=== PATIENT | male | born 1985 | race Two or more races ===

== ENCOUNTER 2024-08-23 22:09 | Emergency (ER) | payer MEDICARE, SELFPAY ==
[2024-08-23 22:10] VITALS: BMI 41.0
[2024-08-23 22:19] VITALS: BP 127/74; PULSE 99; RESP 18; TEMP 36.8; O2SAT 98
--- NOTE | 2024-08-23 22:32 | XR_ITS ---
Examination: PA chest single view Technique: Upright PA chest single view Exam date and time: August 23, 2024 at 1057 hrs. Comparison 06/17/2024 Indications: Onset chest pain today. Findings: Mild enlargement cardiac contour Minor subsegmental atelectasis right lower lung zone No pneumonia or pulmonary edema Impression: No interval pneumonia or pulmonary edema
--- NOTE | 2024-08-23 22:34 | EDRME_ITS ---
Rapid Medical Screening Exam [facility] Arrival date/time: 08/23/24 22:0 39M with history of DM, HTN and ESRD presents to ED with 1 day of lower chest/epigastric pain and some possibly red N/V after he ate an apple. Patient states it feels like GERD, but his made him come in. Chief Complaint: Nausea/Vomiting/Diarrhea Vital signs: Vital Signs Temperature 98.3 F 08/23/24 22:19 Pulse Rate 99 08/23/24 22:19 Respiratory Rate 18 08/23/24 22:19 Blood Pressure 127/74 08/23/24 22:19 Pulse Oximetry (%) 98 08/23/24 22:19 Oxygen Delivery Method Room Air 08/23/24 22:19
[2024-08-23] MEDS: MG HYD/AL HYD/SIME (Maalox Reg) SUSP 30 ML UDC PO (22:42)
[2024-08-23] MEDS: ONDANSETRON ODT 4 MG TABRAP PO (22:42)
[2024-08-23 23:31] LABS: Alanine Aminotransferase 22 U/L (10-49); Albumin, Serum 3.9 gm/dL (3.5-5.0); Albumin/Globulin Ratio 1.7 (1.2-2.2); Alkaline Phosphatase 66 U/L (46-116); Anion Gap 13 (7-16); Aspartate Amino Transferase 22 U/L (0-34); BUN/Creatinine Ratio 6 Ratio (12-20); Bilirubin,Total 0.2 mg/dL (0.3-1.2); Blood Urea Nitrogen 67 mg/dL (9-23); Calcium 7.2 mg/dL (8.3-10.6); Calcium (Corrected) 7.3 mg/dL (8.5-10.1); Carbon Dioxide 23.3 mMol/L (20.0-31.0); Chloride 105 mMol/L (98-107); Globulin 2.3 gm/dL (2.3-3.5); Glucose 104 mg/dL (74-106); Lipase 29 U/L (12-53); Osmolality,Calculated 300 (275-295); Sodium 141 mMol/L (136-145); Total Protein 6.2 gm/dL (5.7-8.2); Troponin I < 0.020 ng/mL (0.0-0.045); eGFR 6 See Note
[2024-08-23 23:36] LABS: Basophils # (Auto) 0.1 Thou/mm3 (0.0-0.2); Basophils % (Auto) 0 % (0-2.5); Eosinophils # (Auto) 0.3 Thou/mm3 (0.0-0.5); Eosinophils % (Auto) 3 % (0-10); Hematocrit 25.9 % (41.0-53.0); Immature Granulocytes % (Auto) 0 % (0-0); Immature Granulocytes Auto 0.05 Thou/mm3 (0.00-0.00); Lymphocytes # (Auto) 2.1 Thou/mm3 (1.0-4.8); Lymphocytes % (Auto) 17 % (10-50); Mean Corpuscular HGB Conc 32.4 g/dl (31.0-37.0); Mean Corpuscular Hemoglobin 31.8 pg (25.0-35.0); Mean Corpuscular Volume 98 fL (80-100); Monocytes % (Auto) 9 % (0-12); Neutrophils # (Auto) 8.5 Thou/mm3 (1.8-7.7); Neutrophils % (Auto) 71 % (37-80); Nucleated Red Blood Cell % 0 /100 WBC (0); Platelet Count 318 Thou/mm3 (140-440); Red Blood Count 2.64 Miln/mm3 (4.50-5.90); White Blood Count 12.1 Thou/mm3 (3.8-10.6)
[2024-08-23 23:39] LABS: Hemoglobin 8.4 g/dL (13.5-16.0)
[2024-08-24] LABS: Creatinine (Component) 10.6 mg/dL (0.6-1.3)
[2024-08-24 00:59] VITALS: BP 182/91; PULSE 103; RESP 18; TEMP 36.9; O2SAT 99
[2024-08-24 01:00] VITALS: BP 163/92; PULSE 102; RESP 16; O2SAT 99
[2024-08-24 01:30] VITALS: BP 163/92; PULSE 100; RESP 18; O2SAT 100
--- NOTE | 2024-08-24 01:30 | PD.EDNV ---
Nausea/Vomit./Diarrhea-RME/HPI General Chief complaint: Nausea/Vomiting/Diarrhea Stated complaint: VOMITING,CHEST DISCOMFORT Arrival date/time: 08/23/24 22:09 Limitations: no limitations RME / HPI RME / HPI Narrative: 08/23/24 22:0 39M with history of DM, HTN and ESRD presents to ED with 1 day of lower chest/epigastric pain and some possibly red N/V after he ate an apple. Patient states it feels like GERD, but his made him come in. ------ Dr. Tripathi's Main ED Evaluation: 39yo male with pmhx ESRD on peritoneal dialysis, HTN, DM presents to the ED for a chief complaint of chest pain x 1 day. Patient states his chest pain has been progressively getting worse throughout the day. He endorses taking Tums without any alleviation of symptoms. He states he ate an apple, reporting he had N/V after and started noticing some reddish streaks, so his insisted he came in for evaluation. Patient is followed by Dr. Barnes. Denies any other associated symptoms. Denies any recent sick contacts. No known allergies. Related Data Home Medications ?Medication ?Instructions ?Recorded ?Confirmed insulin aspart U-100 100 unit/mL See Rx Instructions .Route .COMPLEX 04/02/20 12/10/23 (3 mL) subcutaneous pen (Novolog FlexPen U-100 Insulin aspart) insulin detemir U-100 100 unit/mL 50 unit subcut DAILY 04/02/20 12/10/23 subcutaneous solution (Levemir U-100 Insulin) aspirin 81 mg capsule 81 mg PO DAILY 11/03/23 12/10/23 atorvastatin 20 mg tablet 20 mg PO QPM 11/03/23 12/07/23 calcitriol 0.5 mcg capsule 0.5 mcg PO DAILY 11/03/23 12/07/23 furosemide 20 mg tablet 20 mg PO DAILY 11/03/23 12/10/23 labetalol 200 mg tablet 200 mg PO BID 11/03/23 12/07/23 losartan 100 1 tab PO DAILY 11/03/23 12/07/23 mg-hydrochlorothiazide 25 mg tablet nifedipine 30 mg tablet,extended 30 mg PO QDAY 11/03/23 12/07/23 release 24 hr sodium bicarbonate 325 mg tablet 325 mg PO BID 11/03/23 12/07/23 spironolactone 25 mg tablet 25 mg PO QDAY 11/03/23 12/07/23 Previous Rx's ?Medication ?Instructions ?Recorded calcium acetate(phosphat bind) 667 667 mg PO TIDWM #90 caps 12/14/23 mg capsule Allergies Allergy/AdvReac Type Severity Reaction Status Date / Time No Known Allergies Allergy Verified 08/23/24 22:12 Review of Systems Review of Systems Systems Reviewed: All systems reviewed, normal except as documented Past Medical History Past Medical History NEUROLOGIC: Negative Neurological Disorders, Cerebrovascular Accident, Transient Ischemic Attacks (TIA), Dementia, Alzheimer's Disease, Parkinson's Disease, Brain Tumor, Meningitis, Seizures, Epilepsy, Multiple Sclerosis, Cerebral Palsy, Amyotrophic Lateral Sclerosis (ALS/Ally Gehrig's), Guillain-Drifton Syndrome, Spina Bifida, Paralysis, Sierra's Palsy, Subdural Hematoma, Migraine, Head Trauma, Spinal Cord Injury or Traumatic Brain Injury CARDIAC: Positive Cardiomyopathy, Edema and Hypertension; Negative Cardiac Disorders, Myocardial Infarction, Cardiac Arrhythmia, Atrial Fibrillation, Angina, Heart Murmur, Coronary Artery Disease, Atherosclerotic Heart Disease, Peripheral Vascular Disease, Hypercholesterolemia, Aneurysm, Congestive Heart Failure, Congenital Heart Disease, Valvular Heart Disease, Rheumatic Fever, Pericarditis, Cellulitis, Deep Vein Thrombosis, Hypotension or Varicose Veins RESPIRATORY: Negative Chronic Obstructive Pulmonary Disease (COPD), Asthma, Bronchitis, Emphysema, Pneumonia, Pulmonary Fibrosis, Cystic Fibrosis, Tuberculosis, Pulmonary Embolism, Pulmonary Edema or Sleep Apnea GASTROINTESTINAL: Positive Obesity; Negative Gastrointestinal Disorders, Hepatitis, Cirrhosis, Pancreatitis, Celiac Disease, Gall Bladder Disease, Gastrointestinal Bleed, Esophageal Varices, Alvarado's Esophagus, Colitis, Ulcerative Colitis, Diverticulitis, Diverticulosis, Ulcer, Colorectal Cancer, Irritable Bowel, Crohn's Disease, Obstructive Bowel, Hiatal Hernia, Hemorrhoids or Gastroesophageal Reflux Disease GENITOURINARY: Negative Genitourinary Disorders, Renal Disease, Kidney Stones, Polycystic Kidney Disease, Neurogenic Bladder, Inguinal Hernia, Dialysis, Prostate Cancer or Benign Prostatic Hyperplasia REPRODUCTIVE: Negative Fibroids, Genital Herpes, Gonorrhea, Syphilis or Testicular Cancer MUSCULOSKELETAL: Positive Musculoskeletal Disorders and Fibromyalgia; Negative Muscular Dystrophy, Myasthenia Gravis, Marfan's Syndrome, Bone Cancer, Arthritis, Rheumatoid Arthritis, Osteoporosis, Degenerative Disk Disease, Gout, Scoliosis, Carpal Tunnel Syndrome, Fractures, Degenerative Joint Disease, Osteomyelitis or Poliovirus ENT: Positive Glaucoma; Negative Cataracts, Blind, Retinal Detachment, Macular Degeneration, Ear Infection, Deafness, Head Trauma or Eye Prosthesis ENDOCRINE: Positive Endocrine Disorders and Diabetes Mellitus Type 1; Negative Diabetes Mellitus Type 2, Hypoglycemia, Spencer's Syndrome, Dixon's Disease, Hyperthyroidism, Hypothyroidism, Parathyroid Disease, Pituitary Disease, Systemic Lupus Erythematosus, Syndrome of Inappropriate Antidiuretic Hormone (SIADH), Adrenal Disease or Graves' Disease HEMATOLOGIC: Negative Blood Disorders, Anemia, Leukemia, Hemophilia, Thalassemia, Sickle Cell Disease or Clotting Problems PSYCHO/SOCIAL: Negative Psychiatric Problems, Schizophrenia, Recreational Drug Use, Bipolar Disorder, Depression, Anxiety, Behavior Problems, Self-Mutilation, Attention Deficit Disorder, Attention Deficit Hyperactivity Disorder, Depression or Eating Disorder OTHER HISTORY: Positive Hospitalization, Falls and Chicken Pox; Negative Autoimmune Disease, Down Syndrome, Autism, Developmental Delay, Shingles, Blood Transfusions, Blood Transfusion Reaction, Anesthesia Reactions, Organ Transplant, Chemotherapy, Radiation Therapy, Hyperbaric Therapy, MRSA, VRSA, Vancomycin-Resistant Enterococci, Human Immunodeficiency Virus (HIV), Measles, Rubella ([place] Measles), Pertussis, Clostridium Difficile, Cancer, Colorectal Cancer, Lung Cancer, Prostate Cancer or Testicular Cancer Family History FAMILY HISTORY: Negative Family Psychiatric Problems, Family Respiratory Disorders, Family Cardiac Disorders, Family Gastrointestinal Problems, Family Cancer, Family Surgery or Family Anesthesia Reaction Surgical History SURGICAL: Positive Amputation; Negative Cardiac Surgery, Open Heart Surgery, Coronary Artery Bypass Graft, Valve Replacement, Vascular Surgery, Coronary Stent, Cardiac Catheterization, Pacemaker, Angiogram, Auto Implanted Cardiovert Defib, Endocrine Surgery, Thyroidectomy, Ear Surgery, Tympanostomy Tube, Eye Surgery, Nose Surgery, Oral Surgery, Tonsillectomy, Adenoidectomy, Cochlear Implant, Corneal Transplant, Throat Surgery, Abdominal Surgery, Tracheostomy, Gastric Bypass Surgery, Gastrostomy, Bowel Surgery, Nephrectomy, Transurethral Resection, Joint Replacement, Open Reduction Internal Fixation, Arthroscopy, Neurologic Surgery, Brain Shunt, Vasectomy or Organ Transplant Social History SMOKING STATUS: Never smoker SECOND HAND EXPOSURE: No SUBSTANCE USE: does not use ED Exam General Limitations: Present no limitations General appearance: Present alert and in no apparent distress Head Head exam: Present atraumatic Eye Eye exam: Present normal appearance, PERRL and EOMI ENT ENT exam: Present normal exam, normal oropharynx and mucous membranes moist Neck Neck exam: Present normal inspection, full ROM and trachea midline Chest Chest inspection: Present normal inspection and symmetric chest wall rise Respiratory Respiratory exam: Present normal lung sounds bilaterally Cardiovascular Cardiovascular exam: Present regular rate, normal rhythm and normal heart sounds Abdominal Exam Abdominal exam: Present soft and normal bowel sounds Extremities Exam Extremities exam: Present normal inspection and full ROM Back Exam Back exam: Present normal inspection and full ROM Neurological Exam Neurological exam: Present alert, oriented X3 and CN II-XII intact Psychiatric Psychiatric exam: Present normal affect and normal mood Skin Skin exam: Present warm, dry, intact and normal color Course Course Course Narrative: CXR is ordered for determining the etiology of chest pain. Quality Measures none Orders Category Date Time Status EKG (ED ONLY) *Do not use* NOW Care 08/23/24 22:25 Completed EKG (ED Only) Stat Exams 08/23/24 22:25 Ordered XR chest 1V portable Stat Exams 08/23/24 22:32 Completed CBC Stat Lab 08/23/24 22:53 Completed Comprehensive Metabolic Panel Stat Lab 08/23/24 22:53 Completed Lipase Stat Lab 08/23/24 22:53 Completed Troponin I Stat Lab 08/23/24 22:53 Completed Ondansetron Odt [Zofran Odt] Med 08/23/24 22:32 Discontinued 4 mg PO X1 ONE mg Hyd/Al Hyd/Teresa Susp [Maalox Susp] Med 08/23/24 22:32 Discontinued 30 ml PO X1 ONE Vital Signs Vital signs: Vital Signs Temperature 98.3 F 08/23/24 22:19 Pulse Rate 99 08/23/24 22:19 Respiratory Rate 18 08/23/24 22:19 Blood Pressure 127/74 08/23/24 22:19 Pulse Oximetry (%) 98 08/23/24 22:19 Oxygen Delivery Method Room Air 08/23/24 22:19 Pulse ox is 98% on room air, which is normal according to my interpretation. Nausea/Vomiting/Diarrhea Patient data External records reviewed:: [facility] previous records (Per chart review, patient was admitted here on 06/17/24 for a fever, but ultimately left AMA.) Clinical information provided by:: patient Social determinants that could affect healthcare access:: none Patient has the following chronic illnesses:: ESRD on peritoneal dialysis, DM, HTN How is presenting disease/condition affected by chronic disease/condition?: exacerbated by Evaluation data The following diagnostics were reviewed and interpreted by me:: lab results, radiology exam(s) and EKG tracing(s) Lab and/or radiology exams considered but not ordered:: none Interpretation Summary: CXR shows no cardiomegaly, no CHF, no infiltrates, according to my interpretation. EKG done at 2246 shows normal sinus rhythm, rate of 97, PVCs, QTc: 433, no STEMI, similar to previous EKG done on 06/17/24 Medications / Prescriptions Medications / Prescriptions considered but not ordered:: none Medication administrations:: Medication Administration History Discontinued Medications Al Hydrox/Mg Hydrox/Simethicone (Mg Hyd/Al Hyd/Teresa (Maalox Reg) Susp 30 Ml Udc) 30 ml PO X1 ONE Stop: 08/23/24 22:33 Last Admin: 08/23/24 22:42 Dose: 30 ml Documented By: IGOR Ondansetron HCl (Ondansetron Odt 4 Mg Tabrap) 4 mg PO X1 ONE; Protocol Stop: 08/23/24 22:33 Last Admin: 08/23/24 22:42 Dose: 4 mg Documented By: IGOR see above Consultations Consultation(s) initiated? (list below): No Diagnosis Nausea Differential Diagnosis: food poisoning and other (gastritis, upper GI bleed) Most likely diagnosis given after review of the tests above:: see below Admission Indicated Admission indicated?: not indicated Admission Request Was there a request for admission?: No Disposition Plan Disposition Plan: Discharge Discharge Attestation Discharge Attestation: The patient and all family members were given an opportunity to ask questions and understood the discharge instructions. Discharge instructions specifically effects, indications for sooner follow up or return to the emergency department, and the expected course of current diagnosis. Patient condition: Stable Discharge Plan Plan Patient Disposition: HOME (Self Care) Patient condition on transfer: Stable Prescriptions/Referrals Prescriptions/Med Rec: No Action insulin aspart U-100 [Novolog FlexPen U-100 Insulin] 100 unit/mL (3 mL) Insulin Pen See Rx Instructions .ROUTE .COMPLEX Protocol: Insulin Corrective High-Dose Regimen Condition: Fingerstick Blood Glucose Dose/Route: Insulin Units Condition: 141-180 mg/dl Dose/Route: 6 units/SQ Condition: 181-220 mg/dl Dose/Route: 8 units/SQ Condition: 221-260 mg/dl Dose/Route: 10 units/SQ Condition: 261-300 mg/dl Dose/Route: 12 units/SQ Condition: 301-350 mg/dl Dose/Route: 14 units/SQ Condition: 351-400 mg/dl Dose/Route: 16 units/SQ Condition: greater than 400 mg/dl Dose/Route: 18 units/SQ Rx Instructions: TID every meal sliding scale Levemir U-100 Insulin 100 unit/mL Solution 50 unit SUBCUT DAILY calcium acetate(phosphat bind) 667 mg Capsule 667 mg PO TIDWM Qty: 90 0RF nifedipine 30 mg Tablet Extended Release 24hr 30 mg PO QDAY atorvastatin 20 mg Tablet 20 mg PO QPM labetalol 200 mg Tablet 200 mg PO BID sodium bicarbonate 325 mg Tablet 325 mg PO BID spironolactone 25 mg Tablet 25 mg PO QDAY losartan-hydrochlorothiazide 100-25 mg Tablet 1 tab PO DAILY calcitriol 0.5 mcg Capsule 0.5 mcg PO DAILY furosemide 20 mg Tablet 20 mg PO DAILY aspirin 81 mg Capsule 81 mg PO DAILY Hold Instructions: Resume on 11/04/23. Referrals: Opal Barnes MD [Primary Care Provider] - In 1 week Problem List Clinical Impression: Vomiting Patient/Caregiver Discharge Instructions Diet Instructions: Do not eat anything red tomorrow. Stay hydrated is much as you can based on your fluid restriction. Education Materials: ED Diet for Vomiting or ... Additional Instructions: Return to the emergency department for any worsening symptoms, or any other concerns. Follow-up with your kidney doctor as scheduled. Print Language: Lebanese Stand Alone Forms: Gris Award Info., Patient Portal Info Letter
== END 2024-08-24 01:44 | disposition home or self-care (01) ==
PROVIDERS: Physician Assistant; Emergency Provider Emergency Medicine; PCP Internal Medicine
DX: R11.2 Nausea with vomiting, unspecified (principal); R07.9 Chest pain, unspecified; I49.3 Ventricular premature depolarization
CPT/HCPCS: 36415; 71045; 80053; 83690; 84484; 85025; 93005; 99283; Q0162; A9270

== ENCOUNTER → 2024-08-28 | Outpatient (CLI) | payer MEDICARE, SELFPAY | END | disposition home or self-care (01) | LOC: SWHD 10:43 | PROVIDERS: PCP Internal Medicine; Referring Provider Internal Medicine; Visit Provider Student in an Organized Health Care Education/Training Program | DX: E11.621 Type 2 diabetes mellitus with foot ulcer (principal); L97.512 Non-pressure chronic ulcer of other part of right foot with fat layer exposed; Z79.4 Long term (current) use of insulin; Z79.84 Long term (current) use of oral hypoglycemic drugs | CPT/HCPCS: 11042; A9270 ==

== ENCOUNTER 2024-09-05 09:57 | Outpatient (RCR) | payer MEDICARE, SELFPAY | END 2024-09-08 23:59 | disposition home or self-care (01) | LOC: SWHD 09:57 | PROVIDERS: PCP Internal Medicine; Referring Provider Internal Medicine; Visit Provider Student in an Organized Health Care Education/Training Program | DX: E11.621 Type 2 diabetes mellitus with foot ulcer (principal); L97.512 Non-pressure chronic ulcer of other part of right foot with fat layer exposed; Z79.4 Long term (current) use of insulin; Z79.84 Long term (current) use of oral hypoglycemic drugs | CPT/HCPCS: 11042; 82962; A9270; G0277 ==

== ENCOUNTER → 2024-09-26 | Outpatient (CLI) | payer MEDICARE, SELFPAY | END | disposition home or self-care (01) | LOC: SWHD 11:49 | PROVIDERS: PCP Internal Medicine; Referring Provider Internal Medicine; Visit Provider Student in an Organized Health Care Education/Training Program | DX: L97.512 Non-pressure chronic ulcer of other part of right foot with fat layer exposed (principal); Z79.4 Long term (current) use of insulin; Z79.84 Long term (current) use of oral hypoglycemic drugs | CPT/HCPCS: 82962; A9270; G0277 ==

== ENCOUNTER 2024-10-09 09:57 | Outpatient (RCR) | payer MEDICARE, SELFPAY | END 2024-10-09 23:59 | disposition home or self-care (01) | LOC: SWHD 09:57 | PROVIDERS: PCP Internal Medicine; Referring Provider Internal Medicine; Visit Provider Student in an Organized Health Care Education/Training Program | DX: L97.512 Non-pressure chronic ulcer of other part of right foot with fat layer exposed (principal); Z79.4 Long term (current) use of insulin; Z79.84 Long term (current) use of oral hypoglycemic drugs | CPT/HCPCS: 97597; 11042 ×4; 82962; A9270; G0277 ==

== ENCOUNTER → 2024-10-15 | Outpatient (CLI) | payer MEDICARE, SELFPAY | END | disposition home or self-care (01) | PROVIDERS: PCP Internal Medicine; Referring Provider Internal Medicine; Visit Provider Student in an Organized Health Care Education/Training Program | DX: L97.512 Non-pressure chronic ulcer of other part of right foot with fat layer exposed (principal); Z79.4 Long term (current) use of insulin; Z79.84 Long term (current) use of oral hypoglycemic drugs | CPT/HCPCS: 82962; G0277 ==

== ENCOUNTER 2024-10-17 10:02 | Outpatient (RCR) | payer MEDICARE, SELFPAY | END 2024-11-09 23:59 | disposition home or self-care (01) | LOC: SWHD 10:02 | PROVIDERS: PCP Internal Medicine; Referring Provider Internal Medicine; Visit Provider Surgery | DX: E11.621 Type 2 diabetes mellitus with foot ulcer (principal); L97.512 Non-pressure chronic ulcer of other part of right foot with fat layer exposed; T81.89XA Other complications of procedures, not elsewhere classified, initial encounter; E11.52 Type 2 diabetes mellitus with diabetic peripheral angiopathy with gangrene; Z79.4 Long term (current) use of insulin; Z79.84 Long term (current) use of oral hypoglycemic drugs | CPT/HCPCS: 11042; 82962; A9270; G0277 ==

== ENCOUNTER → 2024-10-24 | Outpatient (CLI) | payer MEDICARE, SELFPAY | END | disposition home or self-care (01) | LOC: SWHD 08:41 | PROVIDERS: PCP Internal Medicine; Referring Provider Internal Medicine; Visit Provider Student in an Organized Health Care Education/Training Program | DX: L97.512 Non-pressure chronic ulcer of other part of right foot with fat layer exposed (principal); T81.89XA Other complications of procedures, not elsewhere classified, initial encounter; E11.52 Type 2 diabetes mellitus with diabetic peripheral angiopathy with gangrene; Z79.4 Long term (current) use of insulin; Z79.84 Long term (current) use of oral hypoglycemic drugs | CPT/HCPCS: 11042; A9270 ==

== ENCOUNTER → 2024-10-30 | Outpatient (CLI) | payer MEDICARE, SELFPAY | END | disposition home or self-care (01) | LOC: SWHD 08:57 | PROVIDERS: PCP Internal Medicine; Referring Provider Internal Medicine; Visit Provider Student in an Organized Health Care Education/Training Program | DX: L97.512 Non-pressure chronic ulcer of other part of right foot with fat layer exposed (principal); T81.89XA Other complications of procedures, not elsewhere classified, initial encounter; E11.52 Type 2 diabetes mellitus with diabetic peripheral angiopathy with gangrene; Z79.4 Long term (current) use of insulin; Z79.84 Long term (current) use of oral hypoglycemic drugs | CPT/HCPCS: 11042; 17250; A9270 ==

== ENCOUNTER → 2024-11-06 | Outpatient (CLI) | payer MEDICARE, SELFPAY | END | disposition home or self-care (01) | LOC: SWHD 08:36 | PROVIDERS: PCP Internal Medicine; Referring Provider Internal Medicine; Visit Provider Student in an Organized Health Care Education/Training Program | DX: E11.621 Type 2 diabetes mellitus with foot ulcer (principal); L97.512 Non-pressure chronic ulcer of other part of right foot with fat layer exposed; T81.89XA Other complications of procedures, not elsewhere classified, initial encounter; E11.52 Type 2 diabetes mellitus with diabetic peripheral angiopathy with gangrene; Z79.4 Long term (current) use of insulin; Z79.84 Long term (current) use of oral hypoglycemic drugs | CPT/HCPCS: 11042; A9270 ==

== ENCOUNTER → 2024-11-13 | Outpatient (CLI) | payer MEDICARE, SELFPAY | END | disposition home or self-care (01) | LOC: SWHD 09:00 | PROVIDERS: PCP Internal Medicine; Referring Provider Internal Medicine; Visit Provider Student in an Organized Health Care Education/Training Program | DX: E11.621 Type 2 diabetes mellitus with foot ulcer (principal); L97.512 Non-pressure chronic ulcer of other part of right foot with fat layer exposed; T81.89XA Other complications of procedures, not elsewhere classified, initial encounter; E11.52 Type 2 diabetes mellitus with diabetic peripheral angiopathy with gangrene; Z79.4 Long term (current) use of insulin; Z79.84 Long term (current) use of oral hypoglycemic drugs | CPT/HCPCS: 11042; A9270 ==

== ENCOUNTER → 2024-11-20 | Outpatient (CLI) | payer MEDICARE, SELFPAY | END | disposition home or self-care (01) | LOC: SWHD 08:41 | PROVIDERS: PCP Internal Medicine; Referring Provider Internal Medicine; Visit Provider Student in an Organized Health Care Education/Training Program | DX: E11.621 Type 2 diabetes mellitus with foot ulcer (principal); L97.512 Non-pressure chronic ulcer of other part of right foot with fat layer exposed; T81.89XA Other complications of procedures, not elsewhere classified, initial encounter; E11.52 Type 2 diabetes mellitus with diabetic peripheral angiopathy with gangrene; Z79.4 Long term (current) use of insulin; Z79.84 Long term (current) use of oral hypoglycemic drugs | CPT/HCPCS: 97597 ==

== ENCOUNTER 2024-11-28 05:18 | Emergency (ER) | payer MEDICARE, SELFPAY ==
[2024-11-28 05:20] VITALS: BP 126/72; PULSE 77; RESP 20; TEMP 36.8; O2SAT 97
--- NOTE | 2024-11-28 05:26 | PD.EDRME ---
Rapid Medical Screening Exam RME Arrival date/time: 11/28/24 05:18 Time Seen by Provider: 11/28/24 05:26 Vital signs: Vital Signs Temperature 98.2 F 11/28/24 05:20 Pulse Rate 77 11/28/24 05:20 Respiratory Rate 20 11/28/24 05:20 Blood Pressure 126/72 11/28/24 05:20 Pulse Oximetry (%) 97 11/28/24 05:20 Oxygen Delivery Method Room Air 11/28/24 05:20 RME Narrative: 39yo male with a history of DMI, HTN, renal disease on peritoneal dialysis BIBA from home presents to the ED for a chief complaint of near syncope. Per EMS, patient started feeling generally weak, reporting the patient got up to eat a snack, but it did not improve his symptoms. Blood sugar with EMS was 180. Patient felt his blood pressure was low, reporting he's never had similar symptoms, so he came in for evaluation. He denies any cough, shortness of breath, N/V/D or any other associated symptoms. EMS administered 1L NS en route. Patient states he did peritoneal dialysis last night.
[2024-11-28 05:27] VITALS: PULSE 80; RESP 18; O2SAT 99
--- NOTE | 2024-11-28 05:27 | XR_ITS ---
Examination: AP chest single view TECHNIQUE: AP chest single view November 28, 2024 at 0551 hours Comparison 08/23/2024 INDICATIONS: Chest pain today. FINDINGS: Mild prominence left ventricle Mild elevation right hemidiaphragm No pneumonia or pulmonary edema Prominent osteopenia IMPRESSION: No pneumonia or pulmonary edema
[2024-11-28 05:31] VITALS: BMI 38.0
[2024-11-28 05:34] VITALS: PULSE 81
[2024-11-28 06:29] VITALS: BP 111/59; PULSE 77; RESP 18; O2SAT 98
[2024-11-28 06:33] LABS: Basophils # (Auto) 0.1 Thou/mm3 (0.0-0.2); Basophils % (Auto) 1 % (0-2.5); Eosinophils # (Auto) 0.2 Thou/mm3 (0.0-0.5); Eosinophils % (Auto) 2 % (0-10); Hematocrit 22.9 % (41.0-53.0); Immature Granulocytes % (Auto) 1 % (0-0); Immature Granulocytes Auto 0.08 Thou/mm3 (0.00-0.00); Lymphocytes % (Auto) 16 % (10-50); Mean Corpuscular HGB Conc 32.8 g/dl (31.0-37.0); Mean Corpuscular Hemoglobin 31.4 pg (25.0-35.0); Mean Corpuscular Volume 96 fL (80-100); Monocytes # (Auto) 1.2 Thou/mm3 (0.0-0.8); Monocytes % (Auto) 9 % (0-12); Neutrophils # (Auto) 9.2 Thou/mm3 (1.8-7.7); Neutrophils % (Auto) 72 % (37-80); Nucleated Red Blood Cell % 0 /100 WBC (0); Platelet Count 231 Thou/mm3 (140-440); RDW Standard Deviation 44.4 fL (35.1-43.9); Red Blood Count 2.39 Miln/mm3 (4.50-5.90); White Blood Count 12.7 Thou/mm3 (3.8-10.6)
[2024-11-28 06:37] LABS: Hemoglobin 7.5 g/dL (13.5-16.0)
[2024-11-28 07:02] LABS: Partial Thromboplastin Time 30.3 Seconds (22.0-36.0); Prothrombin Time 10.8 Seconds (9.0-12.2)
[2024-11-28 07:07] LABS: Alanine Aminotransferase 14 U/L (10-49); Albumin, Serum 3.7 gm/dL (3.5-5.0); Albumin/Globulin Ratio 1.4 (1.2-2.2); Alkaline Phosphatase 74 U/L (46-116); Anion Gap 19 (7-16); Aspartate Amino Transferase < 10 U/L (0-34); BUN/Creatinine Ratio 6 Ratio (12-20); Bilirubin,Total < 0.2 mg/dL (0.3-1.2); Blood Urea Nitrogen 91 mg/dL (9-23); Calcium (Corrected) 7.2 mg/dL (8.5-10.1); Chloride 110 mMol/L (98-107); Estimated Creatinine Clearance 7.8 mL/min (>60); Globulin 2.6 gm/dL (2.3-3.5); Glucose 231 mg/dL (74-106); Osmolality,Calculated 316 (275-295); Potassium 4.6 mMol/L (3.4-5.1); Sodium 141 mMol/L (136-145); Total Protein 6.3 gm/dL (5.7-8.2); Troponin I < 0.020 ng/mL (0.0-0.045); eGFR 4 See Note
[2024-11-28 07:38] LABS: Creatinine (Component) 15.6 mg/dL (0.6-1.3)
[2024-11-28 07:40] LABS: Carbon Dioxide 12.2 mMol/L (20.0-31.0)
[2024-11-28 07:41] LABS: B-Type Natriuretic Peptide 82 pg/mL (0-100)
--- NOTE | 2024-11-28 07:44 | PD.EDADULT ---
ED General RME/HPI General Chief complaint: Syncope / Near Syncope Stated complaint: near syncope Time Seen by Provider: 11/28/24 05:26 Arrival date/time: 11/28/24 05:18 RME / HPI RME / HPI narrative: 39yo male with a history of DMI, HTN, renal disease on peritoneal dialysis BIBA from home presents to the ED for a chief complaint of near syncope. Per EMS, patient started feeling generally weak, reporting the patient got up to eat a snack, but it did not improve his symptoms. Blood sugar with EMS was 180. Patient felt his blood pressure was low, reporting he's never had similar symptoms, so he came in for evaluation. He denies any cough, shortness of breath, N/V/D or any other associated symptoms. EMS administered 1L NS en route. Patient states he did peritoneal dialysis last night. DR. CANTU MAIN ED EVALUATION: 39-year-old male with past medical history significant for end-stage renal disease on home peritoneal dialysis who presents to the emergency department with sensation of lightheadedness. He states he frequently gets lightheadedness and cramps after dialysis. He in fact skipped his home dialysis last night due to muscle cramps. He denies abdominal pain nausea or vomiting. He states his calcium binder calcium acetate was just switched over due to a national shortage approximately week ago by his package worker Dr. Barnes. Otherwise he denies any recent changes or recent illness. He has had issue with acidosis around his dialysis, this seemed to improve and and was stopped on his sodium bicarbonate approximately 1 month ago by his package worker. Related Data Home Medications ?Medication ?Instructions ?Recorded ?Confirmed insulin aspart U-100 100 unit/mL See Rx Instructions .Route .COMPLEX 04/02/20 12/10/23 (3 mL) subcutaneous pen (Novolog FlexPen U-100 Insulin aspart) insulin detemir U-100 100 unit/mL 50 unit subcut DAILY 04/02/20 12/10/23 subcutaneous solution (Levemir U-100 Insulin) aspirin 81 mg capsule 81 mg PO DAILY 11/03/23 12/06/24 atorvastatin 20 mg tablet 20 mg PO QPM 11/03/23 12/06/24 calcitriol 0.5 mcg capsule 0.5 mcg PO DAILY 11/03/23 12/07/23 furosemide 20 mg tablet 20 mg PO DAILY 11/03/23 12/06/24 labetalol 200 mg tablet 200 mg PO BID 11/03/23 12/07/23 losartan 100 1 tab PO DAILY 11/03/23 12/06/24 mg-hydrochlorothiazide 25 mg tablet nifedipine 30 mg tablet,extended 30 mg PO QDAY 11/03/23 12/07/23 release 24 hr sodium bicarbonate 325 mg tablet 325 mg PO BID 11/03/23 12/07/23 spironolactone 25 mg tablet 25 mg PO QDAY 11/03/23 12/07/23 clonidine HCl 0.2 mg tablet 0.2 mg PO BID 12/06/24 12/06/24 hydralazine 50 mg tablet 50 mg PO BID 12/06/24 12/06/24 vitamin B complex-vitamin C-folic 1 tab PO DAILY 12/06/24 12/06/24 acid 0.8 mg tablet (Faye-Alicia) Previous Rx's ?Medication ?Instructions ?Recorded calcium acetate(phosphat bind) 667 667 mg PO TIDWM #90 caps 12/14/23 mg capsule sodium bicarbonate 325 mg tablet 325 mg PO BID #20 tabs 11/28/24 Allergies Allergy/AdvReac Type Severity Reaction Status Date / Time No Known Allergies Allergy Verified 08/23/24 22:12 Review of Systems Review of Systems Systems Reviewed: All systems reviewed, normal except as documented Narrative Review of Systems: GEN: No fever, no chills, no weight loss EYES: No discharge, no visual changes, no pain HEENT: No ear pain, no congestion, no sore throat PULM: No shortness of breath, no cough, no congestion CV: No chest pain, no dyspnea on exertion, no palpitations GI: No nausea, no vomiting, no diarrhea, no pain, no constipation : No frequency, no urgency and no dysuria MUSC/SKEL: No joint pain, no back pain SKIN: No rash PSYCH: No hallucinations, no depression HEME/LYMPH: No easy bleeding or bruising tendencies NEURO: No weakness, no headache, + lightheadedness (see HPI) Past Medical History Past Medical History CARDIAC: Positive Cardiomyopathy, Edema and Hypertension GASTROINTESTINAL: Positive Obesity GENITOURINARY: Positive Dialysis (peritoneal) MUSCULOSKELETAL: Positive Musculoskeletal Disorders and Fibromyalgia ENT: Positive Glaucoma ENDOCRINE: Positive Endocrine Disorders and Diabetes Mellitus Type 1 OTHER HISTORY: Positive Hospitalization, Falls and Chicken Pox Surgical History SURGICAL: Positive Amputation Social History SMOKING STATUS: Never smoker SECOND HAND EXPOSURE: No SUBSTANCE USE: does not use ALCOHOL: Never ED Exam Narrative Physical exam: GENERAL APPEARANCE: AxOx4, generally well-appearing, no acute distress. HEENT: NC, AT. MMM. EOMI, clear conjunctiva, oropharynx clear. NECK: Supple without lymphadenopathy. No stiffness or restricted ROM. HEART: Normal rate and regular rhythm, normal S1/S1, no m/r/g LUNGS: CTAB, moving air well. No crackles or wheezes are heard. ABDOMEN: Soft, nontender, moderately distended, positive fluid wave, with good bowel sounds heard. BACK: No midline C/T/L spine pain or deformity, No CVAT, no obvious deformity. EXTREMITIES: Without cyanosis, clubbing or edema. MUSCULOSKELETAL: FROM of all major joints, no chest tenderness NEUROLOGICAL: Grossly nonfocal. Alert and oriented, moving all 4 extremities. CN not formally tested but appear grossly intact. Observed to ambulate with normal gait. Skin: Warm and dry without any rash. Course Course Course Narrative: Patient remained stable and asymptomatic in the emergency department. We reviewed all results, analysis, treatment plan patient was amenable to discharge. Strict return precautions were reviewed and patient was discharged in stable condition. Quality Measures none Orders Category Date Time Status Advisory Services Associate STAT Care 11/28/24 05:27 Completed Continuous Pulse Oximetry ONCE Care 11/28/24 05:27 Completed EKG (ED ONLY) *Do not use* NOW Care 11/28/24 05:27 Completed Insert IV STAT Care 11/28/24 05:27 Completed Intake and Output Routine Care 11/28/24 05:27 Ordered Orthostatic Vitals NOW Care 11/28/24 05:27 Completed EKG (ED Only) Stat Exams 11/28/24 05:27 Ordered XR chest 1V portable Stat Exams 11/28/24 05:27 Completed B-Type Natriuretic Peptide Stat Lab 11/28/24 06:20 Completed CBC Stat Lab 11/28/24 06:20 Completed Comprehensive Metabolic Panel Stat Lab 11/28/24 06:20 Completed Magnesium Stat Lab 11/28/24 06:20 Completed Partial Thromboplastin Time Stat Lab 11/28/24 06:20 Completed Prothrombin Time with INR Stat Lab 11/28/24 06:20 Completed Troponin I Stat Lab 11/28/24 06:20 Completed Sodium Bicarb 8.4% 50ml Vial* Med 11/28/24 08:32 Discontinued 50 meq IV X1 ONE Sodium Bicarb 8.4% 50ml Vial* Med 11/28/24 08:59 Discontinued 50 meq IV X1 ONE Sodium Bicarb 8.4% SYR Med 11/28/24 09:58 Discontinued 50 ml IV X1 ONE Sodium Bicarb 8.4% SYR Med 11/28/24 09:59 Discontinued 50 ml IV X1 ONE Vital Signs Vital signs: Vital Signs Temperature 98.2 F 11/28/24 05:20 Pulse Rate 77 11/28/24 05:20 Respiratory Rate 20 11/28/24 05:20 Blood Pressure 126/72 11/28/24 05:20 Pulse Oximetry (%) 97 11/28/24 05:20 Oxygen Delivery Method Room Air 11/28/24 05:20 SPO 97% on room air, patient is not hypoxic MDM Patient data External records reviewed:: [facility] previous records (Reviewed last ED visit dated 10/24/23, discharged with the following: Vomiting) Clinical information provided by:: patient Social determinants that could affect healthcare access:: none Patient has the following chronic illnesses:: End-stage renal disease on home peritoneal dialysis How is presenting disease/condition affected by chronic disease/condition?: exacerbated by Evaluation data The following diagnostics were reviewed and interpreted by me:: lab results and radiology exam(s) Lab and/or radiology exams considered but not ordered:: none Interpretation Summary: Procedure(s): XR chest 1V portable Accession Number(s): [id number] cc: Ramon Oscar MD; Steve Chakraborty MD; Opal Barnes MD Examination: AP chest single view TECHNIQUE: AP chest single view November 28, 2024 at 0551 hours Comparison 08/23/2024 INDICATIONS: Chest pain today. FINDINGS: Mild prominence left ventricle Mild elevation right hemidiaphragm No pneumonia or pulmonary edema Prominent osteopenia IMPRESSION: No pneumonia or pulmonary edema Dictated By: Ramon Oscar MD Medications Medications considered but not ordered:: none Medication administrations:: Medication Administration History Discontinued Medications Sodium Bicarbonate (Sodium Bicarb Inj 8.4% 1 Meq/Ml Vial 50 Ml) 50 meq IV X1 ONE Stop: 11/28/24 08:33 Last Admin: 11/28/24 10:00 Dose: Not Given Documented By: VG Non-Admin Reason: Cancelled by Provider Sodium Bicarbonate (Sodium Bicarb Inj 8.4% 1 Meq/Ml Vial 50 Ml) 50 meq IV X1 ONE Stop: 11/28/24 09:00 Last Admin: 11/28/24 10:00 Dose: Not Given Documented By: VG Non-Admin Reason: Cancelled by Provider Sodium Bicarbonate (Sodium Bicarb Inj 8.4% Syr 50 Ml Syringe) 50 ml IV X1 ONE Stop: 11/28/24 09:59 Last Admin: 11/28/24 10:03 Dose: 50 ml Documented By: VG Sodium Bicarbonate (Sodium Bicarb Inj 8.4% Syr 50 Ml Syringe) 50 ml IV X1 ONE Stop: 11/28/24 10:00 Last Admin: 11/28/24 10:03 Dose: 50 ml Documented By: SHELLEY see above Consultations Consultation(s) initiated? (list below): Yes Consultation #1 (Physician, Specialty, Details): Nephrology, Dr. Barnes, patient has issue with acidosis and is secondary to him missing his dialysis last night. He recommends an amp of sodium bicarbonate, and to restart his sodium bicarbonate and she will see him next week. She requests it be reflected to the patient it is important not to skip his dialysis Time: 08:35 Diagnosis Differential Diagnosis ED Complaint MDM: dehydration, acute renal failure, metabolic acidosis Most likely diagnosis given after review of the tests above:: CKD, stage V Metabolic acidosis Admission Indicated Admission indicated?: not indicated Explain why admission is indicated or not indicated:: Patient has no emergent abnormalities on his studies and can be managed on an outpatient basis. Admission Request Was there a request for admission?: No Disposition Plan Disposition Plan: Discharge Discharge Attestation Discharge Attestation: The patient and all family members were given an opportunity to ask questions and understood the discharge instructions. Discharge instructions specifically effects, indications for sooner follow up or return to the emergency department, and the expected course of current diagnosis. Patient condition: Stable Medical Decision Making MDM Narrative MDM Narrative: Pema Rodriguez, am scribing for and in the presence of Dr. Cantu. Differential Diagnosis Differential Diagnosis: dehydration, acute renal failure, metabolic acidosis Lab Data 11/28/24 06:20 11/28/24 06:20 Labs: Lab Results 11/28/24 Range/Units 06:20 WBC 12.7 H (3.8-10.6) Thou/mm3 RBC 2.39 L (4.50-5.90) Miln/mm3 Hgb 7.5 L (13.5-16.0) g/dL Hct 22.9 L (41.0-53.0) % MCV 96 (80-100) fL MCH 31.4 (25.0-35.0) pg MCHC 32.8 (31.0-37.0) g/dl RDW Std Deviation 44.4 H (35.1-43.9) fL Plt Count 231 (140-440) Thou/mm3 Neut % (Auto) 72 (37-80) % Lymph % (Auto) 16 (10-50) % [place] % (Auto) 9 (0-12) % Eos % (Auto) 2 (0-10) % Baso % (Auto) 1 (0-2.5) % Neut # (Auto) 9.2 H (1.8-7.7) Thou/mm3 Lymph # (Auto) 2.0 (1.0-4.8) Thou/mm3 [place] # (Auto) 1.2 H (0.0-0.8) Thou/mm3 Eos # (Auto) 0.2 (0.0-0.5) Thou/mm3 Baso # (Auto) 0.1 (0.0-0.2) Thou/mm3 Immature Gran # (Auto) 0.08 H (0.00-0.00) Thou/mm3 Absolute Nucleated RBC 0.00 (0.00-0.00) Thou/mm3 Immature Gran % 1 H (0-0) % Nucleated RBC % 0 (0) /100 WBC PT 10.8 (9.0-12.2) Seconds INR 1.0 (0.9-1.3) APTT 30.3 (22.0-36.0) Seconds Sodium 141 (136-145) mMol/L Potassium 4.6 (3.4-5.1) mMol/L Chloride 110 H (98-107) mMol/L Carbon Dioxide 12.2 L* (20.0-31.0) mMol/L Anion Gap 19 H (7-16) BUN 91 H (9-23) mg/dL Creatinine 15.6 H* (0.6-1.3) mg/dL Estim Creat Clear Calc 7.8 L (>60) mL/min eGFR 4 L* (60 - ) See Note BUN/Creatinine Ratio 6 L (12-20) Ratio Glucose 231 H (74-106) mg/dL Calculated Osmolality 316 H (275-295) Calcium 7.0 L (8.3-10.6) mg/dL Corrected Calcium 7.2 L (8.5-10.1) mg/dL Magnesium 3.0 H (1.6-2.6) mg/dL Total Bilirubin < 0.2 L (0.3-1.2) mg/dL AST < 10 (0-34) U/L ALT 14 (10-49) U/L Alkaline Phosphatase 74 (46-116) U/L Troponin I < 0.020 (0.0-0.045) ng/mL B-Natriuretic Peptide 82 (0-100) pg/mL Total Protein 6.3 (5.7-8.2) gm/dL Albumin 3.7 (3.5-5.0) gm/dL Globulin 2.6 (2.3-3.5) gm/dL Albumin/Globulin Ratio 1.4 (1.2-2.2) Discharge Plan Plan Patient Disposition: HOME (Self Care) Prescriptions/Referrals Prescriptions/Med Rec: New sodium bicarbonate 325 mg tablet 325 mg PO BID Qty: 20 0RF No Action insulin aspart U-100 [Novolog FlexPen U-100 Insulin] 100 unit/mL (3 mL) Insulin Pen See Rx Instructions .ROUTE .COMPLEX Protocol: Insulin Corrective High-Dose Regimen Condition: Fingerstick Blood Glucose Dose/Route: Insulin Units Condition: 141-180 mg/dl Dose/Route: 6 units/SQ Condition: 181-220 mg/dl Dose/Route: 8 units/SQ Condition: 221-260 mg/dl Dose/Route: 10 units/SQ Condition: 261-300 mg/dl Dose/Route: 12 units/SQ Condition: 301-350 mg/dl Dose/Route: 14 units/SQ Condition: 351-400 mg/dl Dose/Route: 16 units/SQ Condition: greater than 400 mg/dl Dose/Route: 18 units/SQ Rx Instructions: TID every meal sliding scale Levemir U-100 Insulin 100 unit/mL Solution 50 unit SUBCUT DAILY calcium acetate(phosphat bind) 667 mg Capsule 667 mg PO TIDWM Qty: 90 0RF clonidine HCl 0.2 mg tablet 0.2 mg PO BID Patient Comments: TAKE 1 TABLET BY MOUTH TWICE A DAY Faye-Alicia 0.8 mg tablet 1 tab PO DAILY Patient Comments: TAKE 1 TABLET BY MOUTH EVERY DAY hydralazine 50 mg tablet 50 mg PO BID Patient Comments: TAKE 1 TABLET BY MOUTH TWICE A DAY nifedipine 30 mg Tablet Extended Release 24hr 30 mg PO QDAY atorvastatin 20 mg Tablet 20 mg PO QPM labetalol 200 mg Tablet 200 mg PO BID sodium bicarbonate 325 mg Tablet 325 mg PO BID spironolactone 25 mg Tablet 25 mg PO QDAY losartan-hydrochlorothiazide 100-25 mg Tablet 1 tab PO DAILY calcitriol 0.5 mcg Capsule 0.5 mcg PO DAILY furosemide 20 mg Tablet 20 mg PO DAILY aspirin 81 mg Capsule 81 mg PO DAILY Referrals: Opal Barnes MD [Primary Care Provider] - In 1 week Problem List Clinical Impression: CKD (chronic kidney disease), stage V, Metabolic acidosis Patient/Caregiver Discharge Instructions Education Materials: ED Diet for Chronic Kidney Disease Additional Instructions: Your case was discussed with your package worker, Dr. Barnes, and it is important not to skip your home peritoneal dialysis. Please do your dialysis once you arrive at home. She would like you to restart your sodium bicarbonate tablets, 325 mg twice a day. You have been given a prescription for 10 days as she wants to follow-up with you in 1 week. Feel free return to the emergency department sooner symptoms worsen or if you notice any new, concerning issues. Print Language: Bangladeshi Stand Alone Forms: [employer] Award Info., Patient Portal Info Letter
[2024-11-28 09:42] VITALS: BP 124/63; PULSE 88; RESP 18; TEMP 36.4; O2SAT 100
[2024-11-28 09:46] VITALS: BP 105/63; BP 124/63; BP 80/54; PULSE 88; PULSE 90; PULSE 92
[2024-11-28] MEDS: Sodium Bicarb Inj 8.4% SYR 50 ML SYRINGE IV ×2 (10:03)
== END 2024-11-28 10:12 | disposition home or self-care (01) ==
PROVIDERS: Emergency Medicine; Emergency Provider Emergency Medicine; PCP Internal Medicine
DX: I12.0 Hypertensive chronic kidney disease with stage 5 chronic kidney disease or end stage renal disease (principal); E87.20 Acidosis, unspecified; R07.9 Chest pain, unspecified; N18.6 End stage renal disease; E10.22 Type 1 diabetes mellitus with diabetic chronic kidney disease; E66.9 Obesity, unspecified; Z99.2 Dependence on renal dialysis; Z91.158 Patient's noncompliance with renal dialysis for other reason
CPT/HCPCS: 36415; 71045; 80053; 83735; 83880; 84484; 85025; 85610; 85730; 93005; 99284

== ENCOUNTER → 2024-12-04 | Outpatient (CLI) | payer MEDICARE, MEDICAID, SELFPAY | END | disposition home or self-care (01) | PROVIDERS: PCP Internal Medicine; Referring Provider Internal Medicine; Visit Provider Surgery | DX: E11.621 Type 2 diabetes mellitus with foot ulcer (principal); L97.512 Non-pressure chronic ulcer of other part of right foot with fat layer exposed; T81.89XA Other complications of procedures, not elsewhere classified, initial encounter; E11.52 Type 2 diabetes mellitus with diabetic peripheral angiopathy with gangrene; Z79.4 Long term (current) use of insulin; Z79.84 Long term (current) use of oral hypoglycemic drugs | CPT/HCPCS: 11042; 97597; A9270 ==

== ENCOUNTER 2024-12-06 13:25 | Observation (INO) | payer MEDICARE, MEDICAID, SELFPAY ==
[2024-12-06] VITALS (9 sets, daily range): BP systolic 90–167; BP diastolic 61–92; PULSE 86–101; RESP 16–18; TEMP 36.5–36.7; O2SAT 98–100; BMI 37.7
--- NOTE | 2024-12-06 13:29 | EKG_ITS ---
[facility] Test Date: 2024-12-06 Pat Name: YENIFER BEARD Department: Room: - Gender: Male Ppa Teacher: : 1985 Requested By: Enzo Zelaya Order Number: [id number] Reading MD: Enzo Zelaya Measurements Intervals [place] Rate: 89 P: 30 DE: 150 QRS: -51 QRSD: 127 T: 73 QT: 413 QTc: 503 Interpretive Statements SINUS RHYTHM LEFT ANTERIOR FASCICULAR BLOCK [QRS AXIS <= -45, QR IN I, RS IN II] MINIMAL VOLTAGE CRITERIA FOR LVH, CONSIDER NORMAL VARIANT [MEETS CRITERIA IN ONE OF: R(aVL), S(V1), R(V5), R(V5/V6)+S(V1)] NONSPECIFIC T-WAVE ABNORMALITY Compared to ECG 06/17/2024 12:04:25 T-wave abnormality now present Sinus tachycardia no longer present Ventricular premature complex(es) no longer present Atrial abnormality no longer present ST (T wave) deviation no longer present /store/S0/[id number]/ecg/[id number].pdf
--- NOTE | 2024-12-06 13:57 | XR_ITS ---
Examination: CT brain head without contrast. 2-D sagittal coronal reconstructions Date and time of exam: July 06, 2025 1455 hrs. Indications: Syncopal episode today CTDI: vol (mGy):56.4 DLP: (mGycm):1164 Technique: Multiple CT axial sections of the brain have been obtained, 5 mm slice thickness. Contrast has not been administered. 2-D sagittal, coronal reconstructions have been obtained Low dose protocols were performed. One or more of the following dose reduction techniques were used; automated exposure control, adjustment of the mA and/or KV according to patient size, use of iterative reconstruction technique. Findings: No significant ventricular enlargement. Intra-axial or extra-axial hemorrhage density is not seen. No mass effect or midline shift Basal cisterns are not remarkable. Fourth ventricle is midline. Cranial vault intact. Impression: Negative for acute hemorrhage, mass effect or midline shift
--- NOTE | 2024-12-06 13:58 | PD.EDSYNC ---
ED Syncope RME/HPI General Chief Complaint: Syncope / Near Syncope Stated Complaint: SYNCOPAL EPISODE Time Seen by Provider: 12/06/24 13:56 Source: patient Arrival date/time: 12/06/24 13:25 This is a 39-year-old male significant past medical history of hyperlipidemia, end-stage renal failure on peritoneal dialysis (nightly), diabetic, hypertension presents via EMS for complaints of dizziness possible syncopal episode. He does report that for the last couple of weeks he has been feeling dizzy when he stands up causing his blood pressure to drop. In addition was evaluated for similar symptoms 1 week ago and was noted to have hypotension, metabolic acidosis, end-stage renal failure.. Today he was at a Dr [facility] clinic, he reports that upon standing up to obtain his weight he felt dizzy and fell to the ground. He was immediately transferred to the emergency department for evaluation. Mode of arrival: EMS Related Data Home Medications ?Medication ?Instructions ?Recorded ?Confirmed insulin aspart U-100 100 unit/mL See Rx Instructions .Route .COMPLEX 04/02/20 12/10/23 (3 mL) subcutaneous pen (Novolog FlexPen U-100 Insulin aspart) insulin detemir U-100 100 unit/mL 50 unit subcut DAILY 04/02/20 12/10/23 subcutaneous solution (Levemir U-100 Insulin) aspirin 81 mg capsule 81 mg PO DAILY 11/03/23 12/10/23 atorvastatin 20 mg tablet 20 mg PO QPM 11/03/23 12/07/23 calcitriol 0.5 mcg capsule 0.5 mcg PO DAILY 11/03/23 12/07/23 furosemide 20 mg tablet 20 mg PO DAILY 11/03/23 12/10/23 labetalol 200 mg tablet 200 mg PO BID 11/03/23 12/07/23 losartan 100 1 tab PO DAILY 11/03/23 12/07/23 mg-hydrochlorothiazide 25 mg tablet nifedipine 30 mg tablet,extended 30 mg PO QDAY 11/03/23 12/07/23 release 24 hr sodium bicarbonate 325 mg tablet 325 mg PO BID 11/03/23 12/07/23 spironolactone 25 mg tablet 25 mg PO QDAY 11/03/23 12/07/23 Previous Rx's ?Medication ?Instructions ?Recorded calcium acetate(phosphat bind) 667 667 mg PO TIDWM #90 caps 12/14/23 mg capsule sodium bicarbonate 325 mg tablet 325 mg PO BID #20 tabs 11/28/24 Allergies Allergy/AdvReac Type Severity Reaction Status Date / Time No Known Allergies Allergy Verified 08/23/24 22:12 Review of Systems Review of Systems Systems Reviewed: All systems reviewed, normal except as documented Narrative Review of Systems: Gen: No fever, no chills, no weight loss, + dizziness EYES: No discharge, no visual changes, no pain HEENT: No ear pain, no congestion, no sore throat PULM: No shortness of breath, no cough, no congestion CV: No chest pain, no dyspnea on exertion, no palpitations GI: No nausea, no vomiting, no diarrhea, no pain, no constipation : No frequency, no urgency, no dysuria Musc/skel: No joint pain, no back pain Skin: No rash Psyc: No hallucinations, no depression Heme/Lymph: No easy bleeding or bruising tendencies Neuro: No weakness, no headache ED Exam Narrative Physical exam: General: Sittiing in Exam table in no acute distress, answering questions appropriately HENT: normocephalic, atraumatic, EOMI, PERRLA, moist mucous membranes Chest: chest wall is nontender Cardiac: regular rate and rhythm, normal S1 and S2, no murmurs, rubs, or gallops, capillary refill ?2 seconds Pulmonary: clear to auscultation bilaterally, no wheezing, crackles, or rhonchi Abdominal: active bowel sounds, soft, nontender, nondistended Neuro: A&OX3, CN II-XII intact, sensation grossly intact bilaterally in UE and LE. Skin: no rashes, no ecchymosis Ext: no lower extremity edema Course Quality Measures none Orders Category Date Time Status Patient Condition Routine Admission 12/06/24 19:[address] in Observation Status Routine Admission 12/06/24 19:08 Active Bedside Blood Glucose NOW Care 12/06/24 13:57 Active Battery Loader STAT Care 12/06/24 13:57 Active EKG (ED ONLY) *Do not use* NOW Care 12/06/24 13:29 Completed IP CCPD Cycler 10hr Exchange HS Care 12/06/24 19:30 Ordered Consult to Nephrology Stat Cons 12/06/24 17:15 Ordered Diet Carbohydrate Consistent Diet 12/07/[address] head/brain wo con Stat Exams 12/06/24 13:57 Completed EKG (ED Only) Stat Exams 12/06/24 13:29 Draft XR chest 1V portable Stat Exams 12/06/24 13:57 Completed CBC Stat Lab 12/06/24 14:15 Completed Comprehensive Metabolic Panel Stat Lab 12/06/24 14:15 Completed Drug Screen,Urine Stat Lab 12/06/24 13:57 Ordered Prothrombin Time with INR Stat Lab 12/06/24 14:15 Completed Troponin I Stat Lab 12/06/24 14:15 Completed Calcium Gluconate 10% Inj Med 12/06/24 17:13 Discontinued 1 gm IV X1 ONE Epoetin Kd-Epbx Inj [Retacrit Inj] Med 12/06/24 19:15 Discontinued 10,000 unit SC X1 ONE Sodium Bicarb 8.4% 50ml Vial* Med 12/06/24 17:13 Discontinued 50 meq IV X1 ONE Sodium Chloride 0.9% 1000 ml [Ns] 1,000 ml Med 12/06/24 19:13 Active IV 50 mls/hr Sodium Chloride 0.9% 1000 ml [Ns] 1,000 ml Med 12/06/24 17:13 Discontinued IV 999 mls/hr Code Status Routine Oth 12/06/24 19:08 Ordered Oxygen Delivery PRN RT 12/06/24 19:08 Active Vital Signs Vital signs: Vital Signs Temperature 98.1 F 12/06/24 13:44 Pulse Rate 89 12/06/24 13:44 Respiratory Rate 18 12/06/24 13:44 Blood Pressure 115/67 12/06/24 13:44 Pulse Oximetry (%) 98 12/06/24 13:44 Oxygen Delivery Method Room Air 12/06/24 13:44 Syncope MDM Narrative MDM Narrative:: History of hypertension, end-stage renal failure and on peritoneal dialysis diabetic. Presents to emergency department for near syncopal episode hypotension. Patient is awake and alert vital signs stable upon arrival patient's labs CT chest x-ray reviewed. Patient's labs demonstrate metabolic acidosis. Most likely due to his peritoneal dialysis, does report he skips occasional sessions. His nifedipine was stopped couple weeks ago by his doctor however his blood pressure still continues to drop. EKG medically necessary in the evaluation of near syncope and interpreted by me and ED physician at the time of patient evaluation. sinus rhythm with a rate of 89. CT and QT intervals within normal limits. No ST/T changes. No STEMI. Interpretation: abnormal EKG The static vitals done patient did feel dizzy, blood pressure dropped from 130s to 90/61. I went ahead and placed a call out to Dr. marvin who recommends the patient stay in the hospital. Most likely IV fluids, amp of bicarb, calcium gluconate for electrolyte imbalance. Patient is also found to be anemic chronic history of anemia hemoglobin today 7.7 hematocrit 22.9. Dx# End-stage renal failure peritoneal dialysis Metabolic acidosis. Hypotension Patient data External records reviewed:: [facility] previous records Clinical information provided by:: patient Social determinants that could affect healthcare access:: none Patient has the following chronic illnesses:: see hpi How is presenting disease/condition affected by chronic disease/condition?: exacerbated by Evaluation data The following diagnostics were reviewed and interpreted by me:: lab results, radiology exam(s) and EKG tracing(s) Lab and/or radiology exams considered but not ordered:: yes Interpretation Summary: see above Examination: AP chest single view Technique one AP portable semiupright chest single view Exam date and time: December 06, 2024 at 1405 hrs. Indications: Shortness of breath dizziness weakness today Findings: Mild prominence left ventricle Moderate elevation right hemidiaphragm No pneumonia or pulmonary edema Moderate osteopenia Impression: No pneumonia or pulmonary edema Examination: AP chest single view Technique one AP portable semiupright chest single view Exam date and time: December 06, 2024 at 1405 hrs. Indications: Shortness of breath dizziness weakness today Findings: Mild prominence left ventricle Moderate elevation right hemidiaphragm No pneumonia or pulmonary edema Moderate osteopenia Impression: No pneumonia or pulmonary edema Medications / Prescriptions Medications or Prescriptions considered but not ordered:: nno Medication administrations:: Medication Administration History Sodium Chloride (Ns) 1,000 mls @ 50 mls/hr IV .Q20H ONE Stop: 12/07/24 15:12 Discontinued Medications Calcium Gluconate (Calcium Gluconate 10% Inj 1 Gm/10 Ml Vial) 1 gm IV X1 ONE Stop: 12/06/24 17:14 Last Admin: 12/06/24 18:33 Dose: 1 gm Documented By: DB Epoetin Kd (Epoetin Kd-Epbx Inj 10,000 Unit/Ml Vial (Esrd)) 10,000 unit SC X1 ONE Stop: 12/06/24 19:16 Sodium Chloride (Ns) 1,000 mls @ 999 mls/hr IV .Q1H1M ONE Stop: 12/06/24 18:13 Last Admin: 12/06/24 18:27 Dose: 999 mls/hr Documented By: CARLY Sodium Bicarbonate (Sodium Bicarb Inj 8.4% 1 Meq/Ml Vial 50 Ml) 50 meq IV X1 ONE Stop: 12/06/24 17:14 Last Admin: 12/06/24 18:36 Dose: 50 meq Documented By: CARLY no Consultations Consultation(s) initiated? (list below): No Diagnosis Syncope Differential Diagnosis: syncope due to orthostatic hypotension, vasovagal syncope, subarachnoid hemorrhage and dehydration Most likely diagnosis given after review of the tests above:: Near syncope Admission Indicated Admission indicated?: indicated Admission Request Was there a request for admission?: Yes Admission Attestation Admission request attestation: Discussed case with [] from Hospitalist service regarding admission. Discussed patients ED course, exam findings, labs, and radiology results. The Hospitalist [agrees,declines] to accept the patient for admission. Disposition Plan Disposition Plan: Admit Discharge Plan Plan Patient Disposition: Admit Acute Care w/in Hospital Prescriptions/Referrals Prescriptions/Med Rec: No Action insulin aspart U-100 [Novolog FlexPen U-100 Insulin] 100 unit/mL (3 mL) Insulin Pen See Rx Instructions .ROUTE .COMPLEX Protocol: Insulin Corrective High-Dose Regimen Condition: Fingerstick Blood Glucose Dose/Route: Insulin Units Condition: 141-180 mg/dl Dose/Route: 6 units/SQ Condition: 181-220 mg/dl Dose/Route: 8 units/SQ Condition: 221-260 mg/dl Dose/Route: 10 units/SQ Condition: 261-300 mg/dl Dose/Route: 12 units/SQ Condition: 301-350 mg/dl Dose/Route: 14 units/SQ Condition: 351-400 mg/dl Dose/Route: 16 units/SQ Condition: greater than 400 mg/dl Dose/Route: 18 units/SQ Rx Instructions: TID every meal sliding scale Levemir U-100 Insulin 100 unit/mL Solution 50 unit SUBCUT DAILY calcium acetate(phosphat bind) 667 mg Capsule 667 mg PO TIDWM Qty: 90 0RF nifedipine 30 mg Tablet Extended Release 24hr 30 mg PO QDAY atorvastatin 20 mg Tablet 20 mg PO QPM labetalol 200 mg Tablet 200 mg PO BID sodium bicarbonate 325 mg Tablet 325 mg PO BID spironolactone 25 mg Tablet 25 mg PO QDAY losartan-hydrochlorothiazide 100-25 mg Tablet 1 tab PO DAILY calcitriol 0.5 mcg Capsule 0.5 mcg PO DAILY furosemide 20 mg Tablet 20 mg PO DAILY aspirin 81 mg Capsule 81 mg PO DAILY sodium bicarbonate 325 mg tablet 325 mg PO BID Qty: 20 0RF Referrals: No Primary/Family,Physician [Primary Care Provider] - In 1 week Problem List Clinical Impression: CKD (chronic kidney disease), stage V, Metabolic acidosis, Syncope due to orthostatic hypotension Patient/Caregiver Discharge Instructions Print Language: Kinyarwanda Stand Alone Forms: Gris Award Info., Patient Portal Info Letter PA/CARTRIDGE ASSEMBLER Supervising Physician PA/CARTRIDGE ASSEMBLER Supervising Physician: dr. Dr. Zelaya
[2024-12-06 14:26] LABS: Basophils % (Auto) 0 % (0-2.5); Eosinophils # (Auto) 0.2 Thou/mm3 (0.0-0.5); Eosinophils % (Auto) 3 % (0-10); Hematocrit 22.9 % (41.0-53.0); Immature Granulocytes % (Auto) 1 % (0-0); Immature Granulocytes Auto 0.04 Thou/mm3 (0.00-0.00); Lymphocytes # (Auto) 1.7 Thou/mm3 (1.0-4.8); Lymphocytes % (Auto) 24 % (10-50); Mean Corpuscular HGB Conc 33.6 g/dl (31.0-37.0); Mean Corpuscular Hemoglobin 30.6 pg (25.0-35.0); Mean Corpuscular Volume 91 fL (80-100); Monocytes % (Auto) 14 % (0-12); Neutrophils # (Auto) 4.2 Thou/mm3 (1.8-7.7); Neutrophils % (Auto) 58 % (37-80); Nucleated Red Blood Cell # 0.02 Thou/mm3 (0.00-0.00); Nucleated Red Blood Cell % 0 /100 WBC (0); Platelet Count 235 Thou/mm3 (140-440); RDW Standard Deviation 39.4 fL (35.1-43.9); Red Blood Count 2.52 Miln/mm3 (4.50-5.90); White Blood Count 7.2 Thou/mm3 (3.8-10.6)
[2024-12-06 14:44] LABS: Prothrombin Time 11.2 Seconds (9.0-12.2)
[2024-12-06 15:00] LABS: Alanine Aminotransferase 20 U/L (10-49); Albumin, Serum 3.6 gm/dL (3.5-5.0); Albumin/Globulin Ratio 1.5 (1.2-2.2); Alkaline Phosphatase 62 U/L (46-116); Anion Gap 19 (7-16); Aspartate Amino Transferase 14 U/L (0-34); BUN/Creatinine Ratio 5 Ratio (12-20); Bilirubin,Total < 0.2 mg/dL (0.3-1.2); Blood Urea Nitrogen 80 mg/dL (9-23); Carbon Dioxide 16.4 mMol/L (20.0-31.0); Chloride 103 mMol/L (98-107); Estimated Creatinine Clearance 8.1 mL/min (>60); Globulin 2.4 gm/dL (2.3-3.5); Glucose 91 mg/dL (74-106); Osmolality,Calculated 299 (275-295); Potassium 3.7 mMol/L (3.4-5.1); Sodium 138 mMol/L (136-145); Troponin I 0.026 ng/mL (0.0-0.045); eGFR 4 See Note
[2024-12-06 15:07] LABS: Hemoglobin 7.7 g/dL (13.5-16.0)
[2024-12-06 15:29] LABS: Calcium 6.5 mg/dL (8.3-10.6)
[2024-12-06 15:30] LABS: Calcium (Corrected) 6.8 mg/dL (8.5-10.1)
--- NOTE | 2024-12-06 17:40 | PC.CC ---
Patient is a 39 year-old male who presents to the hospital for Syncopal Episode. Juanita LANGFORD made [id number] contact with patient. ASW introduced self, role, and reason for visit. Patient appeared alert and oriented to self, location, and situation. Patient was pleasant and engaged in initial assessment. Patient confirmed information on demographics and reports to living at home with his , Trena Joiner. Patient reports that should something happen to him his medical decision maker would be his . Patient reports at home he ambulates independently and is able to complete his own ADLs. Per patient, has a walker at home but does not use it. Patient does not use any oxygen. His primary care provider is Christy and uses pharmacy of choice is [facility]. Upon discharge the patient plans to return back home. financial services manager to follow up with any discharge needs.
[2024-12-06] MEDS: SODIUM CHLORIDE 0.9% 1000 ML 1,000 ML 999 ML IV (18:27)
[2024-12-06] MEDS: CALCIUM GLUCONATE 10% INJ 1 GM/10 ML VIAL IV (18:33)
[2024-12-06] MEDS: SODIUM BICARB INJ 8.4% 1 mEq/ML VIAL 50 ML 50 MEQ IV (18:36)
[2024-12-06] MEDS: SODIUM CHLORIDE 0.9% 1000 ML 1,000 ML 50 ML IV (19:29)
--- NOTE | 2024-12-06 20:47 | PD.NEPHHP ---
Documentation for date of: 12/06/24 History of Present Illness History of Present Illness Chief complaint: Presyncope, weakness History of present illness: Mr. Mace is a 39-year-old male with significant past medical history of hyperlipidemia, end-stage renal failure on peritoneal dialysis (nightly), diabetic, hypertension, renal osteodystrophy, peripheral vascular disease, chronic right leg wound under the care of podiatry presented to my office for routine follow-up and had a presyncopal episode with fall. I had to call paramedics as the blood pressure was significantly low in systolic of 100, blood sugar was 82. Per patient he had similar episode 3 weeks ago. Went to the emergency department. He attributes to rise in the recent nifedipine dose. Patient noted to have severe metabolic acidosis, hypocalcemia. Home medications included spironolactone, sodium bicarbonate, nifedipine, losartan/hydrochlorothiazide, Levemir, labetalol, furosemide, phosphate binder, calcitriol, Lipitor, aspirin. Blood pressure 167/88, heart rate 100. WBC 7.2, hemoglobin 7.7, platelets 235. Sodium 138, potassium 3.7, HCO3 16.4, BUN 80, creatinine 15, GFR 5, calcium 6.8, LFTs normal, albumin 3.6. Head CT negative. Chest x-ray showed normal. EKG showed nonspecific left anterior fascicular block. Patient admitted to the hospital for presyncope, electrolyte imbalance, dehydration. Fluid bolus was given in the emergency department. Review of Systems Review of Systems Narrative Review of Systems: CONSTITUTIONAL: Patient complaining of fatigue HEENT: Denies any visual disturbances or hearing problems. CARDIOVASCULAR: Patient denies any chest pain, shortness of breath, swelling in the lower extremities-better PULMONARY: Patient denies any shortness of breath, cough. GASTROINTESTINAL: Patient denies any abdominal pain, constipation, nausea, vomiting, diarrhea. GENITOURINARY: Patient denies any urinary symptoms of burning or frequency or hematuria, denies any form in the urine. SKIN: Denies any rash. MUSCULOSKELETAL: Denies any muscular skeletal problems of joint pains. NEUROLOGICAL: Denies any neurological problems of strokes, seizures or confusion. Denies any memory problems. Presyncopal episode in my office PSYCHIATRIC: Denies any depression or anxiety. LYMPHATICS : No lymphadenopathy Past Medical History Past Medical History NEUROLOGIC: Negative Neurological Disorders, Cerebrovascular Accident, Transient Ischemic Attacks (TIA), Dementia, Alzheimer's Disease, Parkinson's Disease, Brain Tumor, Meningitis, Seizures, Epilepsy, Multiple Sclerosis, Cerebral Palsy, Amyotrophic Lateral Sclerosis (ALS/Ally Gehrig's), Guillain-Cary Syndrome, Spina Bifida, Paralysis, Sierra's Palsy, Subdural Hematoma, Migraine, Head Trauma, Spinal Cord Injury or Traumatic Brain Injury CARDIAC: Positive Cardiomyopathy, Edema and Hypertension; Negative Cardiac Disorders, Myocardial Infarction, Cardiac Arrhythmia, Atrial Fibrillation, Angina, Heart Murmur, Coronary Artery Disease, Atherosclerotic Heart Disease, Peripheral Vascular Disease, Hypercholesterolemia, Aneurysm, Congestive Heart Failure, Congenital Heart Disease, Valvular Heart Disease, Rheumatic Fever, Pericarditis, Cellulitis, Deep Vein Thrombosis, Hypotension or Varicose Veins RESPIRATORY: Negative Chronic Obstructive Pulmonary Disease (COPD), Asthma, Bronchitis, Emphysema, Pneumonia, Pulmonary Fibrosis, Cystic Fibrosis, Tuberculosis, Pulmonary Embolism, Pulmonary Edema or Sleep Apnea GASTROINTESTINAL: Positive Obesity; Negative Gastrointestinal Disorders, Hepatitis, Cirrhosis, Pancreatitis, Celiac Disease, Gall Bladder Disease, Gastrointestinal Bleed, Esophageal Varices, Alvarado's Esophagus, Colitis, Ulcerative Colitis, Diverticulitis, Diverticulosis, Ulcer, Colorectal Cancer, Irritable Bowel, Crohn's Disease, Obstructive Bowel, Hiatal Hernia, Hemorrhoids or Gastroesophageal Reflux Disease GENITOURINARY: Positive Chronic Kidney Disease, Renal Disease and Dialysis (peritoneal dialysis at home); Negative Genitourinary Disorders, Kidney Stones, Polycystic Kidney Disease, Neurogenic Bladder, Inguinal Hernia, Prostate Cancer or Benign Prostatic Hyperplasia REPRODUCTIVE: Negative Fibroids, Genital Herpes, Gonorrhea, Syphilis or Testicular Cancer MUSCULOSKELETAL: Positive Musculoskeletal Disorders and Fibromyalgia; Negative Muscular Dystrophy, Myasthenia Gravis, Marfan's Syndrome, Bone Cancer, Arthritis, Rheumatoid Arthritis, Osteoporosis, Degenerative Disk Disease, Gout, Scoliosis, Carpal Tunnel Syndrome, Fractures, Degenerative Joint Disease, Osteomyelitis or Poliovirus ENT: Positive Glaucoma; Negative Cataracts, Blind, Retinal Detachment, Macular Degeneration, Ear Infection, Deafness, Head Trauma or Eye Prosthesis ENDOCRINE: Positive Endocrine Disorders and Diabetes Mellitus Type 1; Negative Diabetes Mellitus Type 2, Hypoglycemia, Mc's Syndrome, [place]'s Disease, Hyperthyroidism, Hypothyroidism, Parathyroid Disease, Pituitary Disease, Systemic Lupus Erythematosus, Syndrome of Inappropriate Antidiuretic Hormone (SIADH), Adrenal Disease or Graves' Disease HEMATOLOGIC: Negative Blood Disorders, Anemia, Leukemia, Hemophilia, Thalassemia, Sickle Cell Disease or Clotting Problems PSYCHO/SOCIAL: Negative Psychiatric Problems, Schizophrenia, Recreational Drug Use, Bipolar Disorder, Depression, Anxiety, Behavior Problems, Self-Mutilation, Attention Deficit Disorder, Attention Deficit Hyperactivity Disorder, Depression or Eating Disorder OTHER HISTORY: Positive Hospitalization, Falls and Chicken Pox; Negative Autoimmune Disease, Down Syndrome, Autism, Developmental Delay, Shingles, Blood Transfusions, Blood Transfusion Reaction, Anesthesia Reactions, Organ Transplant, Chemotherapy, Radiation Therapy, Hyperbaric Therapy, MRSA, VRSA, Vancomycin-Resistant Enterococci, Human Immunodeficiency Virus (HIV), Measles, Rubella (Malagasy Measles), Pertussis, Clostridium Difficile, Cancer, Colorectal Cancer, Lung Cancer, Prostate Cancer or Testicular Cancer Family History FAMILY HISTORY: Negative Family Psychiatric Problems, Family Respiratory Disorders, Family Cardiac Disorders, Family Gastrointestinal Problems, Family Cancer, Family Surgery or Family Anesthesia Reaction Surgical History SURGICAL: Positive Amputation; Negative Cardiac Surgery, Open Heart Surgery, Coronary Artery Bypass Graft, Valve Replacement, Vascular Surgery, Coronary Stent, Cardiac Catheterization, Pacemaker, Angiogram, Auto Implanted Cardiovert Defib, Endocrine Surgery, Thyroidectomy, Ear Surgery, Tympanostomy Tube, Eye Surgery, Nose Surgery, Oral Surgery, Tonsillectomy, Adenoidectomy, Cochlear Implant, Corneal Transplant, Throat Surgery, Abdominal Surgery, Tracheostomy, Gastric Bypass Surgery, Gastrostomy, Bowel Surgery, Nephrectomy, Transurethral Resection, Joint Replacement, Open Reduction Internal Fixation, Arthroscopy, Neurologic Surgery, Brain Shunt, Vasectomy or Organ Transplant Social History SMOKING STATUS: Never smoker SECOND HAND EXPOSURE: No SUBSTANCE USE: does not use Meds Home Medications and Allergies Home Medications ?Medication ?Instructions ?Recorded ?Confirmed ?Type insulin aspart U-100 100 unit/mL See Rx Instructions .Route .COMPLEX 04/02/20 12/10/23 History (3 mL) subcutaneous pen (Novolog FlexPen U-100 Insulin aspart) insulin detemir U-100 100 unit/mL 50 unit subcut DAILY 04/02/20 12/10/23 History subcutaneous solution (Levemir U-100 Insulin) aspirin 81 mg capsule 81 mg PO DAILY 11/03/23 12/10/23 History atorvastatin 20 mg tablet 20 mg PO QPM 11/03/23 12/07/23 History calcitriol 0.5 mcg capsule 0.5 mcg PO DAILY 11/03/23 12/07/23 History furosemide 20 mg tablet 20 mg PO DAILY 11/03/23 12/10/23 History labetalol 200 mg tablet 200 mg PO BID 11/03/23 12/07/23 History losartan 100 1 tab PO DAILY 11/03/23 12/07/23 History mg-hydrochlorothiazide 25 mg tablet nifedipine 30 mg tablet,extended 30 mg PO QDAY 11/03/23 12/07/23 History release 24 hr sodium bicarbonate 325 mg tablet 325 mg PO BID 11/03/23 12/07/23 History spironolactone 25 mg tablet 25 mg PO QDAY 11/03/23 12/07/23 History Allergies Allergy/AdvReac Type Severity Reaction Status Date / Time No Known Allergies Allergy Verified 08/23/24 22:12 Exam Vital Signs Temp Pulse Resp BP Pulse Ox O2 Del Method 36.5 C 100 18 167/88 H 98 Room Air 12/06/24 20:26 12/06/24 20:26 12/06/24 20:26 12/06/24 20:26 12/06/24 20:20 12/06/24 20:20 Narrative Exam GENERAL APPEARANCE: Patient looks very dehydrated. Currently seen in the emergency department. NECK: Neck supple, no JVD or bruit CARDIOVASCULAR: Heart regular, no murmurs LUNGS/CHEST: Chest clear to auscultation. No rales, rhonchi, wheezing ABDOMEN: Soft, nontender, nondistended. No masses. Normal bowel sounds. EXTREMITIES: No edema, clubbing or cyanosis. SKIN: Skin exam normal without any rashes MUSCULOSKELETAL: Right foot in a boot NEUROLOGICAL : No neurological deficits Results: Labs 12/06/24 14:15 12/06/24 14:15 Labs: Short CBC 12/06/24 Range/Units 14:15 WBC 7.2 (3.8-10.6) Thou/mm3 Hgb 7.7 L (13.5-16.0) g/dL Hct 22.9 L (41.0-53.0) % Plt Count 235 (140-440) Thou/mm3 BMP 12/06/24 14:15 Sodium 138 Potassium 3.7 Chloride 103 Carbon Dioxide 16.4 L BUN 80 H Creatinine 15.0 H* Glucose 91 Calcium 6.5 L* Cardiac Enzymes 12/06/24 Range/Units 14:15 Troponin I 0.026 (0.0-0.045) ng/mL Liver Function 12/06/24 Range/Units 14:15 Total Bilirubin < 0.2 L (0.3-1.2) mg/dL AST 14 (0-34) U/L ALT 20 (10-49) U/L Alkaline Phosphatase 62 (46-116) U/L Albumin 3.6 (3.5-5.0) gm/dL Assessment & Plan Additional Assessment & Plan Additional Plan: Mr. Mace is a 39year-old man who has a longstanding history of diabetes, hypertension, dyslipidemia, nephrotic syndrome, hyperkalemia, metabolic acidosis, anemia, ESRD on peritoneal dialysis presented to my office and had a presyncopal episode with hypotension. 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 1.5% bags. 2.5 L fill volume with 3 exchanges and no last fill. S/p PD cath (2) Diabetes mellitus: Status: Acute Currently on insulin (3) Hypertension: Status: Acute -Resumed home medications Adjust medications (4) Secondary hyperparathyroidism: Status: Acute -On calcitriol 0.5 twice daily (5) Nephrotic syndrome: Status: Acute -On losartan 100 daily 6) syncope from dehydration (7) Anemia: Status: Acute In the setting of ESRD -Patient received erythropoietin -Monitor CBC (8) Metabolic acidosis: Status: Acute -Received sodium bicarbonate. Will add Bicitra -Repeat BMP in the a.m. Dispo: Patient admitted to telemetry FEN: Renal diet with fluid restriction 1800 mL DVT prophylaxis: SCDs CODE STATUS: Full code Disposition Home Quality Measures Quality Measures none
--- NOTE | 2024-12-06 21:02 | PC.NURSE ---
tx attempted but unable to complete d/t malfunctioning pd cath, md [place] notified w/ order to alteplase pd cath w/ 4mg/4ml to dwell. will reassess cath function tomorrow.
[2024-12-06] MEDS: EPOETIN ALFA-EPBX INJ 10,000 UNIT/ML VIAL (ESRD) 10000 UNIT SC (22:15)
[2024-12-06] MEDS: HEPARIN SOD INJ 1000 UNIT/ML VIAL 10 ML 5000 UNIT INDWELLCAT (22:17)
[2024-12-07] VITALS (8 sets, daily range): BP systolic 131–166; BP diastolic 74–99; PULSE 79–110; RESP 17–93; TEMP 36.3–36.8; O2SAT 95–99; BMI 36.9
[2024-12-07 05:44] LABS: Basophils % (Auto) 0 % (0-2.5); Eosinophils # (Auto) 0.3 Thou/mm3 (0.0-0.5); Eosinophils % (Auto) 4 % (0-10); Hematocrit 21.9 % (41.0-53.0); Immature Granulocytes % (Auto) 1 % (0-0); Immature Granulocytes Auto 0.04 Thou/mm3 (0.00-0.00); Lymphocytes # (Auto) 2.3 Thou/mm3 (1.0-4.8); Lymphocytes % (Auto) 30 % (10-50); Mean Corpuscular HGB Conc 34.2 g/dl (31.0-37.0); Mean Corpuscular Hemoglobin 31.6 pg (25.0-35.0); Mean Corpuscular Volume 92 fL (80-100); Monocytes # (Auto) 0.9 Thou/mm3 (0.0-0.8); Monocytes % (Auto) 12 % (0-12); Neutrophils # (Auto) 4.2 Thou/mm3 (1.8-7.7); Neutrophils % (Auto) 54 % (37-80); Nucleated Red Blood Cell % 0 /100 WBC (0); Platelet Count 228 Thou/mm3 (140-440); RDW Standard Deviation 40.7 fL (35.1-43.9); Red Blood Count 2.37 Miln/mm3 (4.50-5.90); White Blood Count 7.8 Thou/mm3 (3.8-10.6)
[2024-12-07 05:51] LABS: Hemoglobin 7.5 g/dL (13.5-16.0)
[2024-12-07 06:13] LABS: Albumin, Serum 3.4 gm/dL (3.5-5.0); Anion Gap 19 (7-16); BUN/Creatinine Ratio 6 Ratio (12-20); Blood Urea Nitrogen 86 mg/dL (9-23); Carbon Dioxide 15.4 mMol/L (20.0-31.0); Chloride 105 mMol/L (98-107); Estimated Creatinine Clearance 8.1 mL/min (>60); Glucose 72 mg/dL (74-106); Osmolality,Calculated 302 (275-295); Potassium 3.9 mMol/L (3.4-5.1); Sodium 139 mMol/L (136-145); eGFR 4 See Note
[2024-12-07 06:19] LABS: Calcium 6.4 mg/dL (8.3-10.6); Calcium (Corrected) 6.9 mg/dL (8.5-10.1)
[2024-12-07 06:20] LABS: Creatinine (Component) 15.1 mg/dL (0.6-1.3)
[2024-12-07 06:28] LABS: Phosphorous 11.9 mg/dL (2.4-5.1)
[2024-12-07] MEDS: Furosemide 20 MG TABLET PO (08:40)
[2024-12-07] MEDS: NIFEdipine XL 30 MG TABCR PO (08:40)
[2024-12-07] MEDS: CALCITRIOL 0.25 mCg CAPSULE 0.5 MCG PO (08:40)
[2024-12-07] MEDS: LABETALOL 100 MG TABLET 200 MG PO (08:40)
[2024-12-07] MEDS: ASPIRIN EC 81 MG TABEC PO (08:40)
[2024-12-07] MEDS: SODIUM BICARBONATE 650 MG TABLET 325 MG PO (08:41)
[2024-12-07] MEDS: SPIRONOLACTONE 25 MG TABLET PO (08:41)
[2024-12-07] MEDS: CALCIUM ACETATE 667 MG TABLET PO ×2 (08:42→12:37)
--- NOTE | 2024-12-07 11:33 | ESDS_ITS ---
Planned Discharge Date 12/07/24 DS: Providers Provider Date of admission: 12/06/24 19:08 Primary care physician: Physician No Primary/Family Admitting Provider: Opal Toledo MD Attending Provider on Admission: Opal Toledo MD Consults: 12/06/24 17:15 Consult to Nephrology Stat Comment: Consulting Provider: Opal Toledo 12/07/24 01:55 Referral Wound Care Routine Comment: lateral R foot diabetic ulcer, L Abd old PD site 12/07/24 10:37 Referral Nutritional Services Routine Comment: Instructions: Wounds Attending Provider on DC: Opal Toledo MD Discharging Provider: Opal Toledo MD Discharge Diagnosis Discharge Diagnosis (1) Syncope due to orthostatic hypotension: Status: Acute Assessment & Plan: Mr. Mace is a 39year-old man who has a longstanding history of diabetes, hypertension, dyslipidemia, nephrotic syndrome, hyperkalemia, metabolic acidosis, anemia, ESRD on peritoneal dialysis presented to my office and had a presyncopal episode with hypotension. Patient was sent to the hospital for weakness, dehydration, presyncope (1) ESRD-secondary to biopsy-proven progressive diabetic nephropathy -Avoid nephrotoxic drugs Patient could not get a peritoneal dialysis yesterday. Heparin was given. Suggested to follow-up with PD nurse. Was able to do PD at home. (2) Diabetes mellitus: Status: Acute Currently on insulin (3) Hypertension: Status: Acute -Resumed home medications Adjust medications (4) Secondary hyperparathyroidism: Status: Acute -On calcitriol 0.5 twice daily (5) Nephrotic syndrome: Status: Acute -On losartan 100 daily 6) syncope from -after 2 L of fluids he is feeling much better. Dehydration-- (7) Anemia: Status: Acute In the setting of ESRD -Patient received erythropoietin -Monitor CBC (8) Metabolic acidosis: Status: Acute -Received sodium bicarbonate. Problem List Completed Was Problem List Reviewed/Reconciled?: Yes Hospital Course Hospital Course Hospital course: Mr. Mace is a 39-year-old male with significant past medical history of hyperlipidemia, end-stage renal failure on peritoneal dialysis (nightly), diabetic, hypertension, renal osteodystrophy, peripheral vascular disease, chronic right leg wound under the care of podiatry presented to my office for routine follow-up and had a presyncopal episode with fall. I had to call paramedics as the blood pressure was significantly low in systolic of 100, blood sugar was 82. Per patient he had similar episode 3 weeks ago. Went to the emergency department. He attributes to rise in the recent nifedipine dose. Patient noted to have severe metabolic acidosis, hypocalcemia. Home medications included spironolactone, sodium bicarbonate, nifedipine, losartan/hydrochlorothiazide, Levemir, labetalol, furosemide, phosphate binder, calcitriol, Lipitor, aspirin. Blood pressure 167/88, heart rate 100. WBC 7.2, hemoglobin 7.7, platelets 235. Sodium 138, potassium 3.7, HCO3 16.4, BUN 80, creatinine 15, GFR 5, calcium 6.8, LFTs normal, albumin 3.6. Head CT negative. Chest x-ray showed normal. EKG showed nonspecific left anterior fascicular block. Patient admitted to the hospital for presyncope, electrolyte imbalance, dehydration. Fluid bolus was given in the emergency department. 12/07/2024 patient currently seen telemetry. Resting comfortably. Blood pressure seems to be acceptable. Will discharge him on nifedipine 30 mg p.o. daily along with his home medications. Will follow-up with me in 1 to 2 weeks. Suggested to follow-up with PD nurse. Did instill heparin last night in the PD catheter. Status at Discharge Cognitive/behavioral status at discharge: Stable Functional status at discharge: independent ambulation Overall status at discharge: patient is back to baseline Time Spent with Patient Time attestation: Total time spent providing and/or coordinating discharge services: 35 minutes Exam Vital Signs Temp Pulse Resp BP Pulse Ox O2 Del Method 36.8 C 90 18 166/99 H 95 Room Air 12/07/24 08:00 12/07/24 08:41 12/07/24 08:26 12/07/24 08:41 12/07/24 08:00 12/07/24 08:00 Narrative Exam GENERAL APPEARANCE: Patient looks very dehydrated. Currently in telemetry NECK: Neck supple, no JVD or bruit CARDIOVASCULAR: Heart regular, no murmurs LUNGS/CHEST: Chest clear to auscultation. No rales, rhonchi, wheezing ABDOMEN: Soft, nontender, nondistended. No masses. Normal bowel sounds. PD cath + EXTREMITIES: No edema, clubbing or cyanosis. SKIN: Skin exam normal without any rashes MUSCULOSKELETAL: Right foot in a boot NEUROLOGICAL : No neurological deficits Discharge Plan Plan Patient Disposition: HOME (Self Care) Prescriptions/Referrals Prescriptions/Med Rec: Continued insulin aspart U-100 [Novolog FlexPen U-100 Insulin] 100 unit/mL (3 mL) Insulin Pen See Rx Instructions .ROUTE .COMPLEX Protocol: Insulin Corrective High-Dose Regimen Condition: Fingerstick Blood Glucose Dose/Route: Insulin Units Condition: 141-180 mg/dl Dose/Route: 6 units/SQ Condition: 181-220 mg/dl Dose/Route: 8 units/SQ Condition: 221-260 mg/dl Dose/Route: 10 units/SQ Condition: 261-300 mg/dl Dose/Route: 12 units/SQ Condition: 301-350 mg/dl Dose/Route: 14 units/SQ Condition: 351-400 mg/dl Dose/Route: 16 units/SQ Condition: greater than 400 mg/dl Dose/Route: 18 units/SQ Rx Instructions: TID every meal sliding scale Levemir U-100 Insulin 100 unit/mL Solution 50 unit SUBCUT DAILY calcium acetate(phosphat bind) 667 mg Capsule 667 mg PO TIDWM Qty: 90 0RF clonidine HCl 0.2 mg tablet 0.2 mg PO BID Patient Comments: TAKE 1 TABLET BY MOUTH TWICE A DAY Faye-Alicia 0.8 mg tablet 1 tab PO DAILY Patient Comments: TAKE 1 TABLET BY MOUTH EVERY DAY hydralazine 50 mg tablet 50 mg PO BID Patient Comments: TAKE 1 TABLET BY MOUTH TWICE A DAY nifedipine 30 mg Tablet Extended Release 24hr 30 mg PO QDAY atorvastatin 20 mg Tablet 20 mg PO QPM labetalol 200 mg Tablet 200 mg PO BID sodium bicarbonate 325 mg Tablet 325 mg PO BID spironolactone 25 mg Tablet 25 mg PO QDAY losartan-hydrochlorothiazide 100-25 mg Tablet 1 tab PO DAILY calcitriol 0.5 mcg Capsule 0.5 mcg PO DAILY furosemide 20 mg Tablet 20 mg PO DAILY aspirin 81 mg Capsule 81 mg PO DAILY sodium bicarbonate 325 mg tablet 325 mg PO BID Qty: 20 0RF Referrals: No Primary/Family,Physician [Primary Care Provider] - Patient/Caregiver Discharge Instructions Discharge Activity: activity as tolerated Print Language: [place] Activity Restrictions/Additional Instructions: f/u with dr. toledo in 1-2 weeks f/u with PD RN- cont CCPD Stand Alone Forms: Gris Award Info., Patient Portal Info Letter, Work/Release Restrictions Discharge Order Discharge Orders: Discharge (Routine); Ordered 12/07/24 Ordered By: Opal Toledo
== END 2024-12-07 16:11 | disposition home or self-care (01) ==
LOC: SERX 17:25 → S2NX 12-07 07:16 → SERHOLD 12-07 08:23 → S2NX 12-07 08:24
PROVIDERS: Nurse Practitioner Primary Care; Admitting Provider Internal Medicine; Emergency Provider Emergency Medicine; Visit Provider Internal Medicine
DX: I95.1 Orthostatic hypotension (principal); E87.8 Other disorders of electrolyte and fluid balance, not elsewhere classified; E87.20 Acidosis, unspecified; E86.0 Dehydration; E83.51 Hypocalcemia; E78.00 Pure hypercholesterolemia, unspecified; E66.9 Obesity, unspecified; E27.1 Primary adrenocortical insufficiency; E11.51 Type 2 diabetes mellitus with diabetic peripheral angiopathy without gangrene; E11.22 Type 2 diabetes mellitus with diabetic chronic kidney disease; E03.9 Hypothyroidism, unspecified; I12.0 Hypertensive chronic kidney disease with stage 5 chronic kidney disease or end stage renal disease; N18.6 End stage renal disease; Z99.2 Dependence on renal dialysis; E03.8 Other specified hypothyroidism; D63.1 Anemia in chronic kidney disease; Z68.36 Body mass index [BMI] 36.0-36.9, adult; Z79.4 Long term (current) use of insulin; N25.81 Secondary hyperparathyroidism of renal origin; Z01.810 Encounter for preprocedural cardiovascular examination; E11.21 Type 2 diabetes mellitus with diabetic nephropathy
CPT/HCPCS: 36415; 70450; 71045; 80053; 80069; 80307; 84484; 85025; 85610; 87081; 93005; 96360; 96372; 99285; G0378; J0612; J1643; J7030; Q5105; A9270

== ENCOUNTER → 2024-12-11 | Outpatient (CLI) | payer MEDICARE, MEDICAID, SELFPAY | END | disposition home or self-care (01) | PROVIDERS: PCP Internal Medicine; Referring Provider Internal Medicine; Visit Provider Student in an Organized Health Care Education/Training Program | DX: E11.621 Type 2 diabetes mellitus with foot ulcer (principal); L97.512 Non-pressure chronic ulcer of other part of right foot with fat layer exposed; T81.89XA Other complications of procedures, not elsewhere classified, initial encounter; E11.52 Type 2 diabetes mellitus with diabetic peripheral angiopathy with gangrene; Z79.4 Long term (current) use of insulin; Z79.84 Long term (current) use of oral hypoglycemic drugs | CPT/HCPCS: 99214; A9270; G0463 ==

== ENCOUNTER → 2024-12-18 | Outpatient (CLI) | payer MEDICARE, MEDICAID, SELFPAY | END | disposition home or self-care (01) | PROVIDERS: PCP Internal Medicine; Referring Provider Internal Medicine; Visit Provider Surgery | DX: E11.621 Type 2 diabetes mellitus with foot ulcer (principal); L97.512 Non-pressure chronic ulcer of other part of right foot with fat layer exposed; T81.89XA Other complications of procedures, not elsewhere classified, initial encounter; E11.52 Type 2 diabetes mellitus with diabetic peripheral angiopathy with gangrene; Z79.4 Long term (current) use of insulin; Z79.84 Long term (current) use of oral hypoglycemic drugs | CPT/HCPCS: 11042; 97597; A9270 ==

== ENCOUNTER → 2024-12-25 | Outpatient (CLI) | payer MEDICARE, SELFPAY | END | disposition home or self-care (01) | PROVIDERS: PCP Internal Medicine; Referring Provider Internal Medicine; Visit Provider Student in an Organized Health Care Education/Training Program | DX: E11.621 Type 2 diabetes mellitus with foot ulcer (principal); L97.512 Non-pressure chronic ulcer of other part of right foot with fat layer exposed; T81.89XA Other complications of procedures, not elsewhere classified, initial encounter; E11.52 Type 2 diabetes mellitus with diabetic peripheral angiopathy with gangrene; Z79.4 Long term (current) use of insulin; Z79.84 Long term (current) use of oral hypoglycemic drugs | CPT/HCPCS: 97597; A9270 ==

== ENCOUNTER → 2024-12-25 | Outpatient (CLI) | payer MEDICARE, MEDICAID, SELFPAY | END | disposition home or self-care (01) | PROVIDERS: Referring Provider Student in an Organized Health Care Education/Training Program; Visit Provider Student in an Organized Health Care Education/Training Program | DX: E11.622 Type 2 diabetes mellitus with other skin ulcer (principal) | CPT/HCPCS: 87070; 87075; 87077; 87186; 87205 ==

== ENCOUNTER → 2025-01-01 | Outpatient (CLI) | payer MEDICARE, MEDICAID, SELFPAY | END | disposition home or self-care (01) | LOC: SWHD 08:56 | PROVIDERS: PCP Internal Medicine; Referring Provider Internal Medicine; Visit Provider Student in an Organized Health Care Education/Training Program | DX: E11.621 Type 2 diabetes mellitus with foot ulcer (principal); L97.512 Non-pressure chronic ulcer of other part of right foot with fat layer exposed; T81.89XA Other complications of procedures, not elsewhere classified, initial encounter; E11.52 Type 2 diabetes mellitus with diabetic peripheral angiopathy with gangrene; Z79.4 Long term (current) use of insulin; Z79.84 Long term (current) use of oral hypoglycemic drugs | CPT/HCPCS: 97597; A9270 ==

== ENCOUNTER → 2025-01-17 | Outpatient (CLI) | payer MEDICARE, MEDICAID, SELFPAY | END | disposition home or self-care (01) | LOC: SWHD 14:55 | PROVIDERS: PCP Internal Medicine; Referring Provider Internal Medicine; Visit Provider Student in an Organized Health Care Education/Training Program | DX: E11.621 Type 2 diabetes mellitus with foot ulcer (principal); L97.512 Non-pressure chronic ulcer of other part of right foot with fat layer exposed; T81.89XA Other complications of procedures, not elsewhere classified, initial encounter; E11.52 Type 2 diabetes mellitus with diabetic peripheral angiopathy with gangrene; Z79.4 Long term (current) use of insulin; Z79.84 Long term (current) use of oral hypoglycemic drugs | CPT/HCPCS: 97597; A9270 ==

== ENCOUNTER → 2025-01-22 | Outpatient (CLI) | payer MEDICARE, MEDICAID, SELFPAY | END | disposition home or self-care (01) | LOC: SWHD 12:37 | PROVIDERS: PCP Internal Medicine; Referring Provider Internal Medicine; Visit Provider Student in an Organized Health Care Education/Training Program | DX: E11.621 Type 2 diabetes mellitus with foot ulcer (principal); L97.512 Non-pressure chronic ulcer of other part of right foot with fat layer exposed; T81.89XA Other complications of procedures, not elsewhere classified, initial encounter; E11.52 Type 2 diabetes mellitus with diabetic peripheral angiopathy with gangrene; Z79.4 Long term (current) use of insulin; Z79.84 Long term (current) use of oral hypoglycemic drugs | CPT/HCPCS: 11042; A9270 ==

== ENCOUNTER → 2025-01-29 | Outpatient (CLI) | payer MEDICARE, MEDICAID, SELFPAY | END | disposition home or self-care (01) | PROVIDERS: PCP Internal Medicine; Referring Provider Internal Medicine; Visit Provider Surgery | DX: E11.621 Type 2 diabetes mellitus with foot ulcer (principal); L97.512 Non-pressure chronic ulcer of other part of right foot with fat layer exposed; T81.89XA Other complications of procedures, not elsewhere classified, initial encounter; E11.52 Type 2 diabetes mellitus with diabetic peripheral angiopathy with gangrene; Z79.4 Long term (current) use of insulin; Z79.84 Long term (current) use of oral hypoglycemic drugs | CPT/HCPCS: 11042; A9270 ==

== ENCOUNTER → 2025-02-05 | Outpatient (CLI) | payer MEDICARE, MEDICAID, SELFPAY | END | disposition home or self-care (01) | PROVIDERS: PCP Internal Medicine; Referring Provider Internal Medicine; Visit Provider Student in an Organized Health Care Education/Training Program | DX: E11.621 Type 2 diabetes mellitus with foot ulcer (principal); L97.512 Non-pressure chronic ulcer of other part of right foot with fat layer exposed; T81.89XA Other complications of procedures, not elsewhere classified, initial encounter; E11.52 Type 2 diabetes mellitus with diabetic peripheral angiopathy with gangrene; Z79.4 Long term (current) use of insulin; Z79.84 Long term (current) use of oral hypoglycemic drugs | CPT/HCPCS: 97597; A9270 ==

== ENCOUNTER → 2025-02-12 | Outpatient (CLI) | payer MEDICARE, SELFPAY | END | disposition home or self-care (01) | LOC: SWHD 13:21 | PROVIDERS: PCP Internal Medicine; Referring Provider Internal Medicine; Visit Provider Student in an Organized Health Care Education/Training Program | DX: E11.621 Type 2 diabetes mellitus with foot ulcer (principal); L97.512 Non-pressure chronic ulcer of other part of right foot with fat layer exposed; T81.89XA Other complications of procedures, not elsewhere classified, initial encounter; E11.52 Type 2 diabetes mellitus with diabetic peripheral angiopathy with gangrene; Z79.84 Long term (current) use of oral hypoglycemic drugs; Z79.4 Long term (current) use of insulin | CPT/HCPCS: 97597; A9270 ==

== ENCOUNTER → 2025-02-19 | Outpatient (CLI) | payer MEDICARE, SELFPAY | END | disposition home or self-care (01) | PROVIDERS: PCP Internal Medicine; Referring Provider Internal Medicine; Visit Provider Student in an Organized Health Care Education/Training Program | DX: E11.621 Type 2 diabetes mellitus with foot ulcer (principal); L97.512 Non-pressure chronic ulcer of other part of right foot with fat layer exposed; T81.89XA Other complications of procedures, not elsewhere classified, initial encounter; E11.52 Type 2 diabetes mellitus with diabetic peripheral angiopathy with gangrene; Z79.4 Long term (current) use of insulin; Z79.84 Long term (current) use of oral hypoglycemic drugs | CPT/HCPCS: 97597; A9270 ==

== ENCOUNTER → 2025-03-05 | Outpatient (CLI) | payer MEDICARE, SELFPAY | END | disposition home or self-care (01) | PROVIDERS: PCP Internal Medicine; Referring Provider Internal Medicine; Visit Provider Student in an Organized Health Care Education/Training Program | DX: E11.621 Type 2 diabetes mellitus with foot ulcer (principal); L97.512 Non-pressure chronic ulcer of other part of right foot with fat layer exposed; T81.89XA Other complications of procedures, not elsewhere classified, initial encounter; E11.52 Type 2 diabetes mellitus with diabetic peripheral angiopathy with gangrene; Z79.4 Long term (current) use of insulin; Z79.84 Long term (current) use of oral hypoglycemic drugs | CPT/HCPCS: 11042; A9270 ==

== ENCOUNTER → 2025-03-12 | Outpatient (CLI) | payer MEDICARE, SELFPAY | END | disposition home or self-care (01) | LOC: SWHD 08:18 | PROVIDERS: PCP Internal Medicine; Referring Provider Internal Medicine; Visit Provider Student in an Organized Health Care Education/Training Program | DX: E11.621 Type 2 diabetes mellitus with foot ulcer (principal); L97.512 Non-pressure chronic ulcer of other part of right foot with fat layer exposed; T81.89XA Other complications of procedures, not elsewhere classified, initial encounter; D64.9 Anemia, unspecified; N18.6 End stage renal disease; E11.52 Type 2 diabetes mellitus with diabetic peripheral angiopathy with gangrene; Z79.4 Long term (current) use of insulin; Z79.84 Long term (current) use of oral hypoglycemic drugs | CPT/HCPCS: 97597; A9270 ==

== ENCOUNTER → 2025-03-21 | Outpatient (CLI) | payer MEDICARE, SELFPAY | END | disposition home or self-care (01) | LOC: SWHD 13:19 | PROVIDERS: PCP Internal Medicine; Referring Provider Internal Medicine; Visit Provider Student in an Organized Health Care Education/Training Program | DX: E11.621 Type 2 diabetes mellitus with foot ulcer (principal); L97.512 Non-pressure chronic ulcer of other part of right foot with fat layer exposed; T81.89XA Other complications of procedures, not elsewhere classified, initial encounter; D64.9 Anemia, unspecified; N18.6 End stage renal disease; E11.52 Type 2 diabetes mellitus with diabetic peripheral angiopathy with gangrene; Z79.4 Long term (current) use of insulin; Z79.84 Long term (current) use of oral hypoglycemic drugs | CPT/HCPCS: 97597; A9270 ==

== ENCOUNTER → 2025-04-02 | Outpatient (CLI) | payer MEDICARE, SELFPAY | END | disposition home or self-care (01) | LOC: SWHD 10:27 | PROVIDERS: PCP Internal Medicine; Referring Provider Internal Medicine; Visit Provider Student in an Organized Health Care Education/Training Program | DX: E11.621 Type 2 diabetes mellitus with foot ulcer (principal); L97.512 Non-pressure chronic ulcer of other part of right foot with fat layer exposed; T81.89XA Other complications of procedures, not elsewhere classified, initial encounter; D64.9 Anemia, unspecified; N18.6 End stage renal disease; E11.52 Type 2 diabetes mellitus with diabetic peripheral angiopathy with gangrene; Z79.4 Long term (current) use of insulin; Z79.84 Long term (current) use of oral hypoglycemic drugs | CPT/HCPCS: 97597; A9270 ==

== ENCOUNTER → 2025-04-09 | Outpatient (CLI) | payer MEDICARE, SELFPAY | END | disposition home or self-care (01) | LOC: SWHD 09:40 | PROVIDERS: PCP Internal Medicine; Referring Provider Internal Medicine; Visit Provider Student in an Organized Health Care Education/Training Program | DX: E11.621 Type 2 diabetes mellitus with foot ulcer (principal); L97.512 Non-pressure chronic ulcer of other part of right foot with fat layer exposed; S91.301A Unspecified open wound, right foot, initial encounter; X58.XXXA Exposure to other specified factors, initial encounter; T81.89XA Other complications of procedures, not elsewhere classified, initial encounter; D64.9 Anemia, unspecified; N18.6 End stage renal disease; E11.52 Type 2 diabetes mellitus with diabetic peripheral angiopathy with gangrene; Z79.84 Long term (current) use of oral hypoglycemic drugs; Z79.4 Long term (current) use of insulin | CPT/HCPCS: 97597; A9270 ==

== ENCOUNTER → 2025-04-19 | Outpatient (CLI) | payer MEDICARE, SELFPAY | END | disposition home or self-care (01) | PROVIDERS: PCP Internal Medicine; Referring Provider Internal Medicine; Visit Provider Surgery | DX: E11.621 Type 2 diabetes mellitus with foot ulcer (principal); L97.512 Non-pressure chronic ulcer of other part of right foot with fat layer exposed; T81.89XA Other complications of procedures, not elsewhere classified, initial encounter; S91.301A Unspecified open wound, right foot, initial encounter; X58.XXXA Exposure to other specified factors, initial encounter; D64.9 Anemia, unspecified; N18.6 End stage renal disease; E11.52 Type 2 diabetes mellitus with diabetic peripheral angiopathy with gangrene; Z79.4 Long term (current) use of insulin; Z79.84 Long term (current) use of oral hypoglycemic drugs | CPT/HCPCS: 11042; A9270 ==

== ENCOUNTER → 2025-04-23 | Outpatient (CLI) | payer MEDICARE, SELFPAY | END | disposition home or self-care (01) | LOC: SWHD 09:52 | PROVIDERS: PCP Internal Medicine; Referring Provider Internal Medicine; Visit Provider Student in an Organized Health Care Education/Training Program | DX: E11.621 Type 2 diabetes mellitus with foot ulcer (principal); L97.512 Non-pressure chronic ulcer of other part of right foot with fat layer exposed; T81.89XA Other complications of procedures, not elsewhere classified, initial encounter; S91.301A Unspecified open wound, right foot, initial encounter; X58.XXXA Exposure to other specified factors, initial encounter; D64.9 Anemia, unspecified; N18.6 End stage renal disease; E11.52 Type 2 diabetes mellitus with diabetic peripheral angiopathy with gangrene; Z79.4 Long term (current) use of insulin; Z79.84 Long term (current) use of oral hypoglycemic drugs | CPT/HCPCS: 11042; A9270 ==

== ENCOUNTER → 2025-04-30 | Outpatient (CLI) | payer MEDICARE, SELFPAY | END | disposition home or self-care (01) | LOC: SWHD 09:52 | PROVIDERS: PCP Internal Medicine; Referring Provider Internal Medicine; Visit Provider Student in an Organized Health Care Education/Training Program | DX: E11.621 Type 2 diabetes mellitus with foot ulcer (principal); L97.512 Non-pressure chronic ulcer of other part of right foot with fat layer exposed; S91.301A Unspecified open wound, right foot, initial encounter; X58.XXXA Exposure to other specified factors, initial encounter; T81.89XA Other complications of procedures, not elsewhere classified, initial encounter; N18.6 End stage renal disease; E11.52 Type 2 diabetes mellitus with diabetic peripheral angiopathy with gangrene; Z79.4 Long term (current) use of insulin; Z79.84 Long term (current) use of oral hypoglycemic drugs | CPT/HCPCS: 17250; A9270 ==

== ENCOUNTER → 2025-05-07 | Outpatient (CLI) | payer MEDICARE, SELFPAY | END | disposition home or self-care (01) | LOC: SWHD 09:05 | PROVIDERS: PCP Internal Medicine; Referring Provider Internal Medicine; Visit Provider Student in an Organized Health Care Education/Training Program | DX: E11.621 Type 2 diabetes mellitus with foot ulcer (principal); L97.512 Non-pressure chronic ulcer of other part of right foot with fat layer exposed; S91.301A Unspecified open wound, right foot, initial encounter; X58.XXXA Exposure to other specified factors, initial encounter; T81.89XA Other complications of procedures, not elsewhere classified, initial encounter; N18.6 End stage renal disease; E11.52 Type 2 diabetes mellitus with diabetic peripheral angiopathy with gangrene; Z79.4 Long term (current) use of insulin; Z79.84 Long term (current) use of oral hypoglycemic drugs | CPT/HCPCS: 17250; A9270 ==

== ENCOUNTER → 2025-05-14 | Outpatient (CLI) | payer MEDICARE, SELFPAY | END | disposition home or self-care (01) | LOC: SWHD 08:51 | PROVIDERS: PCP Internal Medicine; Referring Provider Internal Medicine; Visit Provider Student in an Organized Health Care Education/Training Program | DX: E11.621 Type 2 diabetes mellitus with foot ulcer (principal); L97.512 Non-pressure chronic ulcer of other part of right foot with fat layer exposed; S91.301A Unspecified open wound, right foot, initial encounter; X58.XXXA Exposure to other specified factors, initial encounter; T81.89XA Other complications of procedures, not elsewhere classified, initial encounter; N18.6 End stage renal disease; E11.52 Type 2 diabetes mellitus with diabetic peripheral angiopathy with gangrene; Z79.4 Long term (current) use of insulin; Z79.84 Long term (current) use of oral hypoglycemic drugs | CPT/HCPCS: 11042; A9270 ==

== ENCOUNTER → 2025-05-21 | Outpatient (CLI) | payer MEDICARE, SELFPAY | END | disposition home or self-care (01) | LOC: SWHD 09:43 | PROVIDERS: PCP Internal Medicine; Referring Provider Internal Medicine; Visit Provider Student in an Organized Health Care Education/Training Program | DX: E11.621 Type 2 diabetes mellitus with foot ulcer (principal); L97.512 Non-pressure chronic ulcer of other part of right foot with fat layer exposed; S91.301A Unspecified open wound, right foot, initial encounter; X58.XXXA Exposure to other specified factors, initial encounter; T81.89XA Other complications of procedures, not elsewhere classified, initial encounter; N18.6 End stage renal disease; E11.52 Type 2 diabetes mellitus with diabetic peripheral angiopathy with gangrene; Z79.84 Long term (current) use of oral hypoglycemic drugs; Z79.4 Long term (current) use of insulin | CPT/HCPCS: 97597; A9270 ==

== ENCOUNTER → 2025-05-28 | Outpatient (CLI) | payer MEDICARE, SELFPAY | END | disposition home or self-care (01) | LOC: SWHD 09:20 | PROVIDERS: PCP Internal Medicine; Referring Provider Internal Medicine; Visit Provider Student in an Organized Health Care Education/Training Program | DX: L97.512 Non-pressure chronic ulcer of other part of right foot with fat layer exposed (principal); S91.301A Unspecified open wound, right foot, initial encounter; X58.XXXA Exposure to other specified factors, initial encounter; T81.89XA Other complications of procedures, not elsewhere classified, initial encounter; N18.6 End stage renal disease; E11.52 Type 2 diabetes mellitus with diabetic peripheral angiopathy with gangrene; Z79.84 Long term (current) use of oral hypoglycemic drugs; Z79.4 Long term (current) use of insulin | CPT/HCPCS: 97597; A9270 ==

== ENCOUNTER → 2025-06-04 | Outpatient (CLI) | payer MEDICARE, SELFPAY | END | disposition home or self-care (01) | LOC: SWHD 08:15 | PROVIDERS: PCP Internal Medicine; Referring Provider Internal Medicine; Visit Provider Student in an Organized Health Care Education/Training Program | DX: E11.621 Type 2 diabetes mellitus with foot ulcer (principal); L97.512 Non-pressure chronic ulcer of other part of right foot with fat layer exposed; S91.301A Unspecified open wound, right foot, initial encounter; X58.XXXA Exposure to other specified factors, initial encounter; T81.89XA Other complications of procedures, not elsewhere classified, initial encounter; N18.6 End stage renal disease; E11.52 Type 2 diabetes mellitus with diabetic peripheral angiopathy with gangrene; Z79.84 Long term (current) use of oral hypoglycemic drugs; Z79.4 Long term (current) use of insulin | CPT/HCPCS: 97597; A9270 ==

== ENCOUNTER → 2025-06-11 | Outpatient (CLI) | payer MEDICARE, SELFPAY | END | disposition home or self-care (01) | LOC: SWHD 10:25 | PROVIDERS: PCP Internal Medicine; Referring Provider Internal Medicine; Visit Provider Student in an Organized Health Care Education/Training Program | DX: E11.621 Type 2 diabetes mellitus with foot ulcer (principal); L97.512 Non-pressure chronic ulcer of other part of right foot with fat layer exposed; S91.301A Unspecified open wound, right foot, initial encounter; X58.XXXA Exposure to other specified factors, initial encounter; T81.89XA Other complications of procedures, not elsewhere classified, initial encounter; N18.6 End stage renal disease; E11.52 Type 2 diabetes mellitus with diabetic peripheral angiopathy with gangrene; Z79.84 Long term (current) use of oral hypoglycemic drugs; Z79.4 Long term (current) use of insulin | CPT/HCPCS: 97597; A9270 ==

== ENCOUNTER → 2025-06-18 | Outpatient (CLI) | payer MEDICARE, SELFPAY | END | disposition home or self-care (01) | LOC: SWHD 10:18 | PROVIDERS: PCP Internal Medicine; Referring Provider Internal Medicine; Visit Provider Student in an Organized Health Care Education/Training Program | DX: E11.621 Type 2 diabetes mellitus with foot ulcer (principal); L97.512 Non-pressure chronic ulcer of other part of right foot with fat layer exposed; S91.301A Unspecified open wound, right foot, initial encounter; X58.XXXA Exposure to other specified factors, initial encounter; T81.89XA Other complications of procedures, not elsewhere classified, initial encounter; N18.6 End stage renal disease; E11.52 Type 2 diabetes mellitus with diabetic peripheral angiopathy with gangrene; Z79.84 Long term (current) use of oral hypoglycemic drugs; Z79.4 Long term (current) use of insulin | CPT/HCPCS: 11042; A9270 ==

== ENCOUNTER → 2025-06-27 | Outpatient (CLI) | payer MEDICARE, SELFPAY | END | disposition home or self-care (01) | LOC: SWHD 09:56 | PROVIDERS: PCP Internal Medicine; Referring Provider Internal Medicine; Visit Provider Student in an Organized Health Care Education/Training Program | DX: E11.621 Type 2 diabetes mellitus with foot ulcer (principal); L97.512 Non-pressure chronic ulcer of other part of right foot with fat layer exposed; S91.301A Unspecified open wound, right foot, initial encounter; X58.XXXA Exposure to other specified factors, initial encounter; T81.89XA Other complications of procedures, not elsewhere classified, initial encounter; N18.6 End stage renal disease; E11.52 Type 2 diabetes mellitus with diabetic peripheral angiopathy with gangrene; Z79.84 Long term (current) use of oral hypoglycemic drugs; Z79.4 Long term (current) use of insulin | CPT/HCPCS: 97597; A9270 ==

== ENCOUNTER → 2025-07-09 | Outpatient (CLI) | payer MEDICARE, SELFPAY | END | disposition home or self-care (01) | LOC: SWHD 09:42 | PROVIDERS: PCP Internal Medicine; Referring Provider Internal Medicine; Visit Provider Student in an Organized Health Care Education/Training Program | DX: E11.621 Type 2 diabetes mellitus with foot ulcer (principal); L97.512 Non-pressure chronic ulcer of other part of right foot with fat layer exposed; S91.301A Unspecified open wound, right foot, initial encounter; X58.XXXA Exposure to other specified factors, initial encounter; T81.89XA Other complications of procedures, not elsewhere classified, initial encounter; N18.6 End stage renal disease; E11.52 Type 2 diabetes mellitus with diabetic peripheral angiopathy with gangrene; Z79.84 Long term (current) use of oral hypoglycemic drugs; Z79.4 Long term (current) use of insulin | CPT/HCPCS: 11042; A9270 ==

== ENCOUNTER → 2025-07-16 | Outpatient (CLI) | payer MEDICARE, SELFPAY | END | disposition home or self-care (01) | LOC: SWHD 09:44 | PROVIDERS: PCP Internal Medicine; Referring Provider Internal Medicine; Visit Provider Student in an Organized Health Care Education/Training Program | DX: E11.621 Type 2 diabetes mellitus with foot ulcer (principal); L97.512 Non-pressure chronic ulcer of other part of right foot with fat layer exposed; T81.89XA Other complications of procedures, not elsewhere classified, initial encounter; S91.301A Unspecified open wound, right foot, initial encounter; X58.XXXA Exposure to other specified factors, initial encounter; N18.6 End stage renal disease; E11.52 Type 2 diabetes mellitus with diabetic peripheral angiopathy with gangrene; Z79.84 Long term (current) use of oral hypoglycemic drugs; Z79.4 Long term (current) use of insulin | CPT/HCPCS: 11042; A9270 ==

== ENCOUNTER → 2025-07-23 | Outpatient (CLI) | payer MEDICARE, SELFPAY | END | disposition home or self-care (01) | LOC: SWHD 09:40 | PROVIDERS: PCP Internal Medicine; Referring Provider Internal Medicine; Visit Provider Student in an Organized Health Care Education/Training Program | DX: E11.621 Type 2 diabetes mellitus with foot ulcer (principal); L97.512 Non-pressure chronic ulcer of other part of right foot with fat layer exposed; T81.89XA Other complications of procedures, not elsewhere classified, initial encounter; S91.301A Unspecified open wound, right foot, initial encounter; X58.XXXA Exposure to other specified factors, initial encounter; N18.6 End stage renal disease; E11.52 Type 2 diabetes mellitus with diabetic peripheral angiopathy with gangrene; Z79.84 Long term (current) use of oral hypoglycemic drugs; Z79.4 Long term (current) use of insulin | CPT/HCPCS: 11042; A9270 ==

== ENCOUNTER → 2025-07-30 | Outpatient (CLI) | payer MEDICARE, SELFPAY | END | disposition home or self-care (01) | LOC: SWHD 09:07 | PROVIDERS: PCP Internal Medicine; Referring Provider Internal Medicine; Visit Provider Student in an Organized Health Care Education/Training Program | DX: E11.621 Type 2 diabetes mellitus with foot ulcer (principal); L97.512 Non-pressure chronic ulcer of other part of right foot with fat layer exposed; T81.89XA Other complications of procedures, not elsewhere classified, initial encounter; S91.301A Unspecified open wound, right foot, initial encounter; X58.XXXA Exposure to other specified factors, initial encounter; N18.6 End stage renal disease; E11.52 Type 2 diabetes mellitus with diabetic peripheral angiopathy with gangrene; Z79.84 Long term (current) use of oral hypoglycemic drugs; Z79.4 Long term (current) use of insulin | CPT/HCPCS: 99212; A9270; G0463 ==

== ENCOUNTER → 2025-08-06 | Outpatient (CLI) | payer MEDICARE, SELFPAY | END | disposition home or self-care (01) | LOC: SWHD 10:41 | PROVIDERS: PCP Internal Medicine; Referring Provider Internal Medicine; Visit Provider Student in an Organized Health Care Education/Training Program | DX: E11.621 Type 2 diabetes mellitus with foot ulcer (principal); L97.512 Non-pressure chronic ulcer of other part of right foot with fat layer exposed; T81.89XA Other complications of procedures, not elsewhere classified, initial encounter; S91.301A Unspecified open wound, right foot, initial encounter; X58.XXXA Exposure to other specified factors, initial encounter; N18.6 End stage renal disease; E11.52 Type 2 diabetes mellitus with diabetic peripheral angiopathy with gangrene; Z79.84 Long term (current) use of oral hypoglycemic drugs; Z79.4 Long term (current) use of insulin | CPT/HCPCS: 97597; A9270 ==

== ENCOUNTER → 2025-08-13 | Outpatient (CLI) | payer MEDICARE, SELFPAY | END | disposition home or self-care (01) | LOC: SWHD 10:52 | PROVIDERS: PCP Internal Medicine; Referring Provider Internal Medicine; Visit Provider Student in an Organized Health Care Education/Training Program | DX: E11.621 Type 2 diabetes mellitus with foot ulcer (principal); L97.515 Non-pressure chronic ulcer of other part of right foot with muscle involvement without evidence of necrosis; T81.89XA Other complications of procedures, not elsewhere classified, initial encounter; S91.301A Unspecified open wound, right foot, initial encounter; X58.XXXA Exposure to other specified factors, initial encounter; N18.6 End stage renal disease; E11.52 Type 2 diabetes mellitus with diabetic peripheral angiopathy with gangrene; Z79.84 Long term (current) use of oral hypoglycemic drugs; Z79.4 Long term (current) use of insulin | CPT/HCPCS: 11042; A9270 ==

== ENCOUNTER → 2025-08-15 | Outpatient (CLI) | payer MEDICARE, SELFPAY ==
--- NOTE | 2025-08-15 09:43 | XR_ITS ---
Examination: Foot, right, 3 views Technique: AP, oblique, lateral views foot, 3 views Date and time of exam: August 15, 2025, 0958 hours INDICATIONS: Nonhealing wound lateral side of the foot 2 years, diabetic FINDINGS: Soft tissue defect lateral foot Suspicious for erosion involving the lateral distal fourth metatarsal Prominent osteopenia IMPRESSION: Suspicious for early osteomyelitis distal fourth metatarsal Consider MRI foot without contrast follow-up
== END | disposition home or self-care (01) ==
PROVIDERS: PCP Internal Medicine; Referring Provider Student in an Organized Health Care Education/Training Program; Visit Provider Student in an Organized Health Care Education/Training Program
DX: E10.621 Type 1 diabetes mellitus with foot ulcer (principal); M25.871 Other specified joint disorders, right ankle and foot
CPT/HCPCS: 73630

== ENCOUNTER → 2025-08-27 | Outpatient (CLI) | payer MEDICARE, SELFPAY | END | disposition home or self-care (01) | LOC: SWHD 10:08 | PROVIDERS: PCP Internal Medicine; Referring Provider Internal Medicine; Visit Provider Student in an Organized Health Care Education/Training Program | DX: E11.621 Type 2 diabetes mellitus with foot ulcer (principal); L97.515 Non-pressure chronic ulcer of other part of right foot with muscle involvement without evidence of necrosis; T81.89XA Other complications of procedures, not elsewhere classified, initial encounter; S91.301A Unspecified open wound, right foot, initial encounter; X58.XXXA Exposure to other specified factors, initial encounter; N18.6 End stage renal disease; E11.52 Type 2 diabetes mellitus with diabetic peripheral angiopathy with gangrene; Z79.84 Long term (current) use of oral hypoglycemic drugs; Z79.4 Long term (current) use of insulin | CPT/HCPCS: 99213; A9270; G0463 ==

== ENCOUNTER → 2025-08-27 | Outpatient (CLI) | payer MEDICARE, SELFPAY | END | disposition home or self-care (01) | PROVIDERS: PCP Student in an Organized Health Care Education/Training Program; Referring Provider Student in an Organized Health Care Education/Training Program; Visit Provider Student in an Organized Health Care Education/Training Program | DX: M86.171 Other acute osteomyelitis, right ankle and foot (principal); E11.621 Type 2 diabetes mellitus with foot ulcer | CPT/HCPCS: 87070; 87075; 87077; 87186; 87205 ==

== ENCOUNTER → 2025-09-10 | Outpatient (CLI) | payer MEDICARE, SELFPAY | END | disposition home or self-care (01) | PROVIDERS: PCP Internal Medicine; Referring Provider Internal Medicine; Visit Provider Student in an Organized Health Care Education/Training Program | DX: E11.621 Type 2 diabetes mellitus with foot ulcer (principal); L97.516 Non-pressure chronic ulcer of other part of right foot with bone involvement without evidence of necrosis; T81.89XA Other complications of procedures, not elsewhere classified, initial encounter; S91.301A Unspecified open wound, right foot, initial encounter; X58.XXXA Exposure to other specified factors, initial encounter; N18.6 End stage renal disease; E11.52 Type 2 diabetes mellitus with diabetic peripheral angiopathy with gangrene; Z79.84 Long term (current) use of oral hypoglycemic drugs; Z79.4 Long term (current) use of insulin | CPT/HCPCS: 11042; 11045; A9270 ==

== ENCOUNTER → 2025-09-17 | Outpatient (CLI) | payer MEDICARE, SELFPAY | END | disposition home or self-care (01) | PROVIDERS: PCP Internal Medicine; Referring Provider Internal Medicine; Visit Provider Student in an Organized Health Care Education/Training Program | DX: E11.621 Type 2 diabetes mellitus with foot ulcer (principal); L97.515 Non-pressure chronic ulcer of other part of right foot with muscle involvement without evidence of necrosis; T81.89XA Other complications of procedures, not elsewhere classified, initial encounter; S91.301A Unspecified open wound, right foot, initial encounter; N18.6 End stage renal disease; E11.52 Type 2 diabetes mellitus with diabetic peripheral angiopathy with gangrene; Z79.84 Long term (current) use of oral hypoglycemic drugs; Z79.4 Long term (current) use of insulin | CPT/HCPCS: 11042; 11045; 87070; 87075; 87077; 87186; 87205; A9270 ==

== ENCOUNTER → 2025-09-24 | Outpatient (CLI) | payer MEDICARE, SELFPAY | END | disposition home or self-care (01) | LOC: SLDO 14:44 | PROVIDERS: PCP Student in an Organized Health Care Education/Training Program; Referring Provider Student in an Organized Health Care Education/Training Program; Visit Provider Student in an Organized Health Care Education/Training Program | DX: E10.621 Type 1 diabetes mellitus with foot ulcer (principal) | CPT/HCPCS: 87070; 87075; 87077; 87186; 87205 ==

== ENCOUNTER → 2025-09-24 | Outpatient (CLI) | payer MEDICARE, SELFPAY | END | disposition home or self-care (01) | LOC: SWHD 09:41 | PROVIDERS: PCP Internal Medicine; Referring Provider Internal Medicine; Visit Provider Student in an Organized Health Care Education/Training Program | DX: E11.621 Type 2 diabetes mellitus with foot ulcer (principal); T81.89XA Other complications of procedures, not elsewhere classified, initial encounter; S91.301A Unspecified open wound, right foot, initial encounter; X58.XXXA Exposure to other specified factors, initial encounter; N18.6 End stage renal disease; E11.52 Type 2 diabetes mellitus with diabetic peripheral angiopathy with gangrene; Z79.84 Long term (current) use of oral hypoglycemic drugs; Z79.4 Long term (current) use of insulin | CPT/HCPCS: 11044; 11047; A9270 ==

== ENCOUNTER 2025-10-09 09:22 | Outpatient (RCR) | payer MEDICARE, SELFPAY | END 2025-10-09 23:59 | disposition home or self-care (01) | LOC: SWHD 09:22 | PROVIDERS: PCP Internal Medicine; Referring Provider Internal Medicine; Visit Provider Student in an Organized Health Care Education/Training Program | DX: E11.621 Type 2 diabetes mellitus with foot ulcer (principal); T81.89XA Other complications of procedures, not elsewhere classified, initial encounter; S91.301A Unspecified open wound, right foot, initial encounter; X58.XXXA Exposure to other specified factors, initial encounter; N18.6 End stage renal disease; E11.52 Type 2 diabetes mellitus with diabetic peripheral angiopathy with gangrene; Z79.4 Long term (current) use of insulin; Z79.84 Long term (current) use of oral hypoglycemic drugs | CPT/HCPCS: 11042 ×2; 11045 ×2; 82962; A9270; G0277 ==